=== PATIENT | male | born 1990 | race Two or more races ===

== ENCOUNTER 2019-01-30 09:10 | Emergency (ER) | payer OTHER ==
[2019-01-30 09:17] VITALS: BMI 26.6
[2019-01-30] MEDS ORDERED: ASPIRIN 81 MG CHEWABLE TABLETS PO ONE (09:27)
[2019-01-30] MEDS ORDERED: RANITIDINE HCL 150 MG TABLET (FP) PO ONE (09:32)
[2019-01-30] MEDS ORDERED: ASPIRIN COATED 81 MG TABLET.EC ONE (09:34)
[2019-01-30] MEDS ORDERED: RANITIDINE HCL 150 MG TABLET (FP) ONE (09:34)
--- NOTE | 2019-01-30 09:34 | PDOC ---
*Physical Exam - Vital Signs Last Vital Signs Temp Pulse Resp BP Pulse Ox 97.7 F 77 20 119/72 100 01/30/19 09:13 01/30/19 09:13 01/30/19 09:13 01/30/19 09:13 01/30/19 09:13 ED Treatment Course - LABORATORY CBC & Chemistry Diagram: 01/30/19 09:45 01/30/19 09:45 Medical Decision Making - Medical Decision Making 01/30/19 09:33 Ms Pina is a 28 yo M who presents to the ER with a complaint of midsternal chest pain He awoke with symptoms this morning with midsternal chest pain Pt was in his usual states of health last night Pain is described as pressure, midsternal, 9/10, no radiatio Pain is worse with sitting forward No chest wall trauma No prior episodes like this 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), does heavy lifting but this has never caused chest pain Family history of diabetes Eval for: Pneumothorax, pleural effusion, pericarditis/myocarditis, ACS, PE EKG: NSR rate of 67 bpm, axis nml, intervals nml, no st elevation or depression , RSR' v1, v2, prominent t waves precordial leads No prior EKG for comparison 01/30/19 09:42 Will do: Labs (including d dimer) Asa, Zantac CXR Morphine for pain Re Assess 01/30/19 10:40 Laboratory Tests 01/30/19 01/30/19 09:45 09:45 WBC 17.5 H Hgb 13.8 Hct 40.9 Plt Count 273 Creatine Kinase 447 H Troponin I < 0.02 01/30/19 12:29 Laboratory Tests 01/30/19 09:45 D-Dimer < 215 Laboratory Tests 01/30/19 12:51 Creatine Kinase 440 H Troponin I < 0.02 Pt has improved Will plan to discharge to home clinical Impression: chest pain, initial presentation *DC/Admit/Observation/Transfer Diagnosis at time of Disposition: Costochondral chest pain - Discharge Dispostion Disposition: HOME Condition at time of disposition: Stable - Prescriptions Prescriptions: Naproxen 500 mg PO BID PRN #20 tablet PRN Reason: pain - Referrals Referrals: Braulio Cain MD [Staff Physician] - - Patient Instructions Printed Discharge Instructions: DI for Costochondritis Additional Instructions: Your labs and chest x-ray was normal. Your symptoms likely from muscle pain. Take prescribed medication as needed for pain. Rest. Follow-up referred cardiology if no improvement in 2 days - Post Discharge Activity Forms/Work/School Notes: Back to Work
[2019-01-30 09:57] LABS: BASO % 0.6 % (0-2.0); EOS % 2.4 % (0-4.5); HEMATOCRIT 40.9 % (35.4-49); HEMOGLOBIN 13.8 GM/dL (11.7-16.9); LYMPH % 18.9 % (8-40); MCHC 33.7 g/dl (32.0-35.9); MEAN CELL VOLUME 95.2 fl (80-96); MEAN PLT VOLUME 8.1 fl (7.5-11.1); MONO % 7.9 % (3.8-10.2); NEUT % 70.2 % (42.8-82.8); PLATELET COUNT 273 K/MM3 (134-434); RDW 12.6 % (11.9-15.9); WHITE BLOOD COUNT 17.5 K/mm3 (4.0-10.0)
--- NOTE | 2019-01-30 10:02 | PDOC ---
History of Present Illness - General Chief Complaint: Chest Pain Stated Complaint: CHEST PAIN Time Seen by Provider: 01/30/19 09:21 History Source: Patient Exam Limitations: Clinical Condition - History of Present Illness Initial Comments: 01/30/19 09:57 Patient with no significant past medical history present with complaint of midsternal chest pain upon wake this morning which is worse with movement, deep breathing or pressing on the middle of the chest. Denies palpitation, weakness, nausea, vomiting, headache. Reported mild dizziness from pain. Denies any family history of cardiomyopathy. Report that he does a lot of heavy lifting at work. Patient did not take any medication for symptoms. Denies any other symptoms Timing/Duration: 4-6 hours Past History - Past Medical History Allergies/Adverse Reactions: Allergies Allergy/AdvReac Type Severity Reaction Status Date / Time No Known Allergies Allergy Verified 01/30/19 09:16 Home Medications: Ambulatory Orders Naproxen 500 mg PO BID PRN #20 tablet 01/30/19 COPD: No - Surgical History Cholecystectomy: Yes - Suicide/Smoking/Psychosocial Hx Smoking History: Current every day smoker Number of Cigarettes Smoked Daily: 5 Information on smoking cessation initiated: No Hx Alcohol Use: Yes Drug/Substance Use Hx: No Review of Systems - Review of Systems Able to Perform ROS?: Yes Is the patient limited Dutch proficient: No Constitutional: No: Chills, Diaphoresis, Fever, Malaise, Weakness HEENTM: No: Symptoms Reported, See HPI, Eye Pain, Blurred Vision, Tearing, Recent change in vision, Double Vision, Cataracts, Ear Pain, Ocular Prothesis, Ear Discharge, Nose Pain, Nose Congestion, Tinnitus, Nose Bleeding, Hearing Loss , Throat Pain, Throat Swelling, Mouth Pain, Dental Problems, Difficulty Swallowing, Mouth Swelling, Other Respiratory: No: Symptoms reported, See HPI, Cough, Orthopnea, Shortness of Breath, SOB with Exertion, SOB at Rest, Stridor, Wheezing, Productive cough, Hemoptysis, Other Cardiac (ROS): Yes: Symptoms Reported, See HPI, Chest Pain (mid- sternal chest pain), Lightheadedness. No: Edema, Irregular Heart Rate, Palpitations, Syncope , Chest Tightness, Other ABD/GI: No: Nausea, Vomiting Musculoskeletal: Yes: Symptoms Reported, See HPI, Muscle Pain (mid-sternum) Neurological: No: Symptoms reported, Headache, Numbness, Paresthesia, Tingling, Weakness All Other Systems: Reviewed and Negative *Physical Exam - Vital Signs Last Vital Signs Temp Pulse Resp BP Pulse Ox 97.7 F 77 20 119/72 100 01/30/19 09:13 01/30/19 09:13 01/30/19 09:13 01/30/19 09:13 01/30/19 09:13 - Physical Exam Comments: 01/30/19 10:04 GENERAL: Well developed, well nourished. Awake and alert in mild acute distress. HEENT: Normocephalic, atraumatic. PERRLA, EOMI. No conjunctival pallor. Sclera are non-icteric. Moist mucous membranes. Oropharynx is clear. NECK: Supple. Full ROM. CARDIOVASCULAR: moderate reproduceable TTP to mid-sternum. Regular rate and rhythm. No murmurs, rubs, or gallops. Distal pulses are 2+ and symmetric. PULMONARY: No evidence of respiratory distress. Lungs clear to auscultation bilaterally. No wheezing, rales or rhonchi. ABDOMINAL: Soft. Non-tender. Non-distended. No rebound or guarding. No organomegaly. Normoactive bowel sounds. MUSCULOSKELETAL moderate reproduceable tenderness to mid-sternum.Normal range of motion at all joints. EXTREMITIES: No cyanosis. No clubbing. No edema. SKIN: Warm and dry. Normal capillary refill. No rashes. NEUROLOGICAL: Alert, awake, appropriate. Gait is normal without ataxia. PSYCHIATRIC: Cooperative. Good eye contact. Appropriate mood General Appearance: Yes: Nourished, Appropriately Dressed, Apparent Distress, Mild Distress ED Treatment Course - LABORATORY CBC & Chemistry Diagram: 01/30/19 09:45 01/30/19 09:45 - RADIOLOGY Radiology Studies Ordered: Category Date Time Status CHEST PA & LAT [RAD] Stat Radiology 01/30/19 09:22 Ordered Medical Decision Making - Medical Decision Making 01/30/19 09:59 Patient with no significant past medical history present with complaint of midsternal chest pain upon wake this morning which is worse with movement, deep breathing or pressing on the middle of the chest. Denies palpitation, weakness, nausea, vomiting, headache. Reported mild dizziness from pain. Denies any family history of cardiomyopathy. Report that he does a lot of heavy lifting at work. Patient did not take any medication for symptoms. Denies any other symptoms Exam significant for moderate reproducible tenderness to midsternal. Normal cardio exam. Normal lungs exam. No abdominal tenderness. Symptoms likely costochondritis versus less likely cardiogenic pain. EKG shows normal sinus rhythm. CBC, CMP and cardiac profile labs ordered to rule out cardiogenic etiology of symptoms. D-dimer ordered. Evaluate for PE. Checks x-ray ordered to rule out acute chest pathology. Aspirin 162 mg chewable given 01/30/19 10:30 chest x-ray unremakable. cardiac profile normal. CBC shows elevated WBC of 17 which could be caused by acute inflammatory effect as pt does not have any other symptoms to indicate infection. Patient report mild improved pain with aspirin Toradol 60mg IM ordered for pain. will repeat blood work again in 3 hours 01/30/19 13:47 Repeat cardiac profile within normal limits. Patient is symptomatic now after Toradol medication. Patient symptoms likely costochondritis and stable for discharge on naproxen when necessary for pain with strict follow-up *DC/Admit/Observation/Transfer Diagnosis at time of Disposition: Costochondral chest pain - Discharge Dispostion Disposition: HOME Condition at time of disposition: Stable Decision to Admit order: No - Prescriptions Prescriptions: Naproxen 500 mg PO BID PRN #20 tablet PRN Reason: pain - Referrals Referrals: Braulio Cain MD [Staff Physician] - - Patient Instructions Printed Discharge Instructions: DI for Costochondritis Additional Instructions: Your labs and chest x-ray was normal. Your symptoms likely from muscle pain. Take prescribed medication as needed for pain. Rest. Follow-up referred cardiology if no improvement in 2 days - Post Discharge Activity Forms/Work/School Notes: Back to Work
[2019-01-30] MEDS ORDERED: ASPIRIN 81 MG CHEWABLE TABLETS ONE (10:12)
[2019-01-30] MEDS ORDERED: KETOROLAC TROMETHAMINE 60 MG/2 ML VIAL ONE (10:13)
[2019-01-30 10:25] LABS: ALBUMIN 3.7 g/dl (3.4-5.0); ALK PHOS 76 U/L (45-117); ANION GAP 3 MMOL/L (8-16); BILIRUBIN,TOTAL 0.4 mg/dL (0.2-1); BLOOD UREA NITROGEN 11.8 mg/dL (7-18); CALCIUM 9.3 mg/dL (8.5-10.1); CHLORIDE 108 mmol/L (98-107); CO2 28 mmol/L (21-32); CREATININE 1.1 mg/dL (0.55-1.3); GLUCOSE,RANDOM 68 mg/dL (74-106); POTASSIUM 4.6 mmol/L (3.5-5.1); SGOT/AST 17 U/L (15-37); SGPT/ALT 19 U/L (13-61); SODIUM 139 mmol/L (136-145)
[2019-01-30] MEDS ORDERED: KETOROLAC TROMETHAMINE 60 MG/2 ML VIAL IM ONE (10:30)
--- NOTE | 2019-01-30 13:28 | EKG ---
Test Reason : Blood Pressure : / mmHG Vent. Rate : 067 BPM Atrial Rate : 067 BPM P-R Int : 152 ms QRS Dur : 098 ms QT Int : 372 ms P-R-T Axes : 039 047 047 degrees QTc Int : 393 ms NORMAL SINUS RHYTHM RSR' OR QR PATTERN IN V1 SUGGESTS RIGHT VENTRICULAR CONDUCTION DELAY BORDERLINE ECG NO PREVIOUS ECGS AVAILABLE Confirmed by GÉNESIS FIGUEROA MD ([id number]) on 01/30/2019 1:28:39 PM Referred By: Confirmed By:GÉNESIS FIGUEROA MD
[2019-01-30 14:17] VITALS: BP 131/72; PULSE 54; TEMP 97.9
== END 2019-01-30 14:14 | disposition home or self-care (01) ==
LOC: JER 09:10
PROC: 3E0233Z Introduction of Anti-inflammatory into Muscle, Percutaneous Approach (ICD-10-PCS; principal; 2019-01-30)
DX: M94.0 Chondrocostal junction syndrome [Tietze] (principal)
CPT/HCPCS: 36415; 71046-TC-FY; 80053; 82550; 82553; 84484; 85025; 85379; 93005; 93010; 99284-25

== ENCOUNTER 2019-03-15 17:27 | Emergency (ER) | payer OTHER ==
--- NOTE | 2019-03-15 17:32 | PDOC ---
Rapid Medical Evaluation Medical Evaluation: Allergies Allergy/AdvReac Type Severity Reaction Status Date / Time No Known Allergies Allergy Verified 01/30/19 09:16 I have performed a brief in-person evaluation of this patient. The patient presents with a chief complaint of: drank 10 shots of alcohol last night and NBNB emesis since 4 AM today along with watery diarrhea; also c/o diffuse abd pain Pertinent physical exam findings: appears uncomfortable, generalized abd TTP I have ordered the following: Labs, IVF, nausea meds The patient will proceed to the ED for further evaluation. 03/15/19 17:29
[2019-03-15 17:33] VITALS: BMI 28.8
[2019-03-15] MEDS ORDERED: SODIUM CHLORIDE 1,000 ML IV STA ×2 (17:33→20:47)
[2019-03-15] MEDS ORDERED: FAMOTIDINE 20 MG/50 ML IVPB 20 MG/50 ML MG IVPB ONE ×2 (17:33→19:39)
[2019-03-15] MEDS ORDERED: ONDANSETRON 4 MG/2 ML VIAL IVPUSH ONE ×2 (17:33→20:18)
--- NOTE | 2019-03-15 18:27 | PDOC ---
History of Present Illness - General Chief Complaint: Vomiting/Diarrhea Stated Complaint: VOMITING Time Seen by Provider: 03/15/19 17:29 History Source: Patient Exam Limitations: No Limitations - History of Present Illness Initial Comments: 03/15/19 20:17 Andrew Pina is a 29y previously healthy M presenting with vomiting. Last night he smoked marijuana and drank large amounts of alcohol. Subsequent 12hrs of vomiting, non bloody. Associated diffuse abdominal pain, R sided chest pain, diarrhea. Cannot keep food/water down. Denies fever, SOB, headache, urinary changes. Past History - Past Medical History Allergies/Adverse Reactions: Allergies Allergy/AdvReac Type Severity Reaction Status Date / Time No Known Allergies Allergy Verified 01/30/19 09:16 Home Medications: Ambulatory Orders Naproxen 500 mg PO BID PRN #20 tablet 01/30/19 COPD: No - Surgical History Cholecystectomy: Yes - Immunization History Immunization Up to Date: Yes - Suicide/Smoking/Psychosocial Hx Smoking History: Never smoked Number of Cigarettes Smoked Daily: 5 Information on smoking cessation initiated: No Hx Alcohol Use: No Drug/Substance Use Hx: No Review of Systems - Review of Systems Constitutional: No: Chills, Fever HEENTM: No: Eye Pain, Nose Pain, Throat Pain, Mouth Pain Respiratory: No: Cough, Shortness of Breath Cardiac (ROS): Yes: Chest Pain (R sided). No: Edema, Palpitations, Syncope ABD/GI: Yes: Diarrhea, Nausea, Vomiting. No: Abdominal Distended, Constipated : No: Burning, Dysuria, Discharge, Flank Pain, Hematuria, Incontinence Musculoskeletal: No: Back Pain, Joint Pain, Muscle Pain, Muscle Weakness Integumentary: No: Bruising, Flushing, Lesions Neurological: No: Headache, Numbness, Seizure, Tingling, Tremors Psychiatric: No: Anxiety, Depression, Stressors Endocrine: No: Excessive Sweating, Flushing, Intolerance to Cold, Intolerance to Heat Hematologic/Lymphatic: No: Anemia, Blood Clots, Easy Bleeding *Physical Exam - Vital Signs Last Vital Signs Temp Pulse Resp BP Pulse Ox 98.2 F 58 L 17 135/67 100 03/15/19 17:31 03/15/19 17:31 03/15/19 17:31 03/15/19 17:31 03/15/19 17:31 - Physical Exam General Appearance: Yes: Nourished, Appropriately Dressed, Moderate Distress ( vomiting). No: Alcohol on Breath HEENT: positive: EOMI, MARCELLA, Normal Voice. negative: Scleral Icterus (R), Scleral Icterus (L), Nasal Congestion, Rhinorrhea Respiratory/Chest: positive: Lungs Clear, Normal Breath Sounds. negative: Chest Tender, Respiratory Distress, Crackles, Rales, Rhonchi, Stridor, Wheezing Cardiovascular: positive: Regular Rhythm, Regular Rate, S1, S2. negative: Edema , Murmur Gastrointestinal/Abdominal: positive: Normal Bowel Sounds, Tender (mild pain w palpation all AB quadrants, moderate tenderness RLQ), Flat, Soft. negative: Organomegaly, Distended, Guarding, Rebound, Mass Musculoskeletal: positive: CVA Tenderness (R). negative: CVA Tenderness (L) Extremity: positive: Delayed Capillary Refill Integumentary: positive: Normal Color Neurologic: positive: Fully Oriented, Alert, Normal Response, Respond to painful stimul, Responsive. negative: Sensory Deficit, Confused, Disoriented ED Treatment Course - LABORATORY CBC & Chemistry Diagram: 03/15/19 19:50 03/15/19 19:50 Medical Decision Making - Medical Decision Making 03/15/19 20:04 CBC CMP lipase UA Ucx UTox EKG CXR 2 morphine for pain, 8 zofran for nausea, pepcid, maalox, 1L NS CT AB w contrast WBC 16, 68 lipase low, trop neg CXR shows clear lung conner CT AB normal pending UA, Utox Andrew Pina is a 29y previously healthy M presenting with vomiting. Vomiting likely gastritis d/t heavy alcohol use vs cyclic vomiting (marijuana use). Appendicitis vs kidney stone not seen on CT AB. Unlikely pancreatitis with low lipase. Plan to d/c home after Ua results. *DC/Admit/Observation/Transfer Diagnosis at time of Disposition: Vomiting Qualifiers: Vomiting type: unspecified Vomiting Intractability: intractable Nausea presence : with nausea Qualified Code(s): R11.2 - Nausea with vomiting, unspecified - Discharge Dispostion Disposition: HOME Condition at time of disposition: Improved Decision to Admit order: No - Referrals - Patient Instructions Printed Discharge Instructions: DI for Vomiting -- Adult Additional Instructions: You were seen for vomiting and abdominal pain. You were given medication to help with your symptoms. Your labs and imaging did not show anything concerning. Please do not consume large amounts of alcohol or marijuana. Come back to the ED if you have worsening pain, continue vomiting, or trouble breathing - Post Discharge Activity
[2019-03-15] MEDS ORDERED: MAG HYDROX/AL HYDROX/SIMETH -MYLANTA- ORAL SUSPENSION PO ONE (19:13)
[2019-03-15] MEDS ORDERED: ONDANSETRON 4 MG/2 ML VIAL ONE ×2 (19:39→20:26)
[2019-03-15] MEDS ORDERED: morphine CARPU-JECT 4 MG/1 ML DISP.SYRIN IVPUSH ONE (19:50)
[2019-03-15] MEDS ORDERED: MORPHINE SULFATE 2 MG/ML VIAL ONE (20:10)
[2019-03-15] MEDS ORDERED: MAG HYDROX/AL HYDROX/SIMETH 30 ML UNIT-DOSE CUP ONE (20:10)
[2019-03-15 20:14] LABS: BASO % 0.1 % (0-2.0); HEMATOCRIT 46.6 % (35.4-49); HEMOGLOBIN 15.4 GM/dL (11.7-16.9); MCH 31.5 pg (25.7-33.7); MEAN CELL VOLUME 95.3 fl (80-96); MEAN PLT VOLUME 8.2 fl (7.5-11.1); MONO % 4.9 % (3.8-10.2); PLATELET COUNT 376 K/MM3 (134-434); RBC 4.89 M/mm3 (4.00-5.60); RDW 12.7 % (11.9-15.9); WHITE BLOOD COUNT 16.1 K/mm3 (4.0-10.0)
--- NOTE | 2019-03-15 20:15 | PDOC ---
Attending Attestation - Resident Resident Name: Justus,Juan - ED Attending Attestation I have performed the following: I have examined & evaluated the patient, The case was reviewed & discussed with the resident, I agree w/resident's findings & plan - HPI HPI: 03/15/19 20:40 Pt comes with girlfriend and her mom. The trio were drinking last night around midnight; also they were eating kiswahili food. Pt had his own dish (fried rice with chicken and broccoli) though his girlfriend may have eaten a bit of it. Pt woke at 3am to go to work, and he began nausea and vomitiing and diarrhea. 3 episodes of diarrhea and vomitiing q5 min. - Physicial Exam PE: 03/15/19 22:04 Agree with resident exam. Pt has diffuse right sided tenderness of abdomen. We will CT scan to make sure that pt has no appendicitis Pt seems to have decreased bowel sounds. Heart, ;rosanna exam normal Pt is afebrile. No flank pain. - Medical Decision Making 03/15/19 20:38 CBC is normal; EKG NSR Chem hemolyzed it will be repeated.Pt is doing better with hydration and meds. He is resting comfortably 03/15/19 23:21 Patient Name: JUAN JENSEN THIS IS A PRELIMINARY REPORT FROM [facility] DATE OF SERVICE: 2019-03-15 22:34:46 IMAGES: 506 EXAM: ABDOMEN \T\ PELVIS CT WITH CONTR History: 29-year-old male with right lower quadrant pain Comparison: None Procedure: CT scan abdomen and pelvis, dated March 15, 2019 . Axial images obtained followed by coronal and sagittal reconstructions. Intravenous contrast utilized , 100 cc Omnipaque 350 . Findings: Hepatomegaly, likely related to a Ceci's lobe of liver. Otherwise the liver, spleen, pancreas, adrenal glands and kidneys unremarkable. Status post cholecystectomy. Ureters nondilated. No bladder calculi are evident. Prostate gland and seminal vesicles normal configuration. Rectum and perirectal space unremarkable. Terminal ileum and appendix within normal limits. No large or small bowel inflammatory changes evident. No evidence for small bowel obstruction. Impression: 1. No findings to suggest acute appendicitis. Terminal ileum and appendix within normal limits. 2. No evidence of tract obstruction or inflammatory change. 3. Status post cholecystectomy.
[2019-03-15 20:44] LABS: LIPASE 68 U/L (73-393)
[2019-03-15] MEDS ORDERED: SODIUM CHLORIDE 0.9% 500 ML INFUS.BAG IV ONE (20:44)
[2019-03-15 21:07] LABS: ALBUMIN 4.6 g/dl (3.4-5.0); ALK PHOS 80 U/L (45-117); ANION GAP 10 MMOL/L (8-16); BILIRUBIN,TOTAL 0.5 mg/dL (0.2-1); BLOOD UREA NITROGEN 10.4 mg/dL (7-18); CALCIUM 10.2 mg/dL (8.5-10.1); CHLORIDE 104 mmol/L (98-107); CO2 25 mmol/L (21-32); CREATININE 1.1 mg/dL (0.55-1.3); GLUCOSE,RANDOM 79 mg/dL (74-106); POTASSIUM 3.9 mmol/L (3.5-5.1); SGOT/AST 27 U/L (15-37); SGPT/ALT 31 U/L (13-61); SODIUM 139 mmol/L (136-145); TOT PROT 8.6 g/dl (6.4-8.2)
[2019-03-16 02:20] LABS: URINE COLOR YELLOW
[2019-03-16 02:21] LABS: URINE APPEARANCE CLEAR; URINE BILIRUBIN NEGATIVE (NEGATIVE); URINE GLUCOSE (UA) NEGATIVE (NEGATIVE); URINE KETONE TRACE (NEGATIVE); URINE PROTEIN NEGATIVE (NEGATIVE); URINE UROBILINOGEN 0.2 mg/dL (0.2-1.0)
[2019-03-16 02:22] LABS: URINE LEUK ESTERASE NEGATIVE (NEGATIVE); URINE NITRITE NEGATIVE (NEGATIVE)
[2019-03-16 02:24] LABS: EPI CELLS 2.7 /HPF (0-5/HPF); HYALINE CASTS 13.92 /lpf (0-8); URINE RBC 1.4 /hpf (0-4); URINE WBC 0.6 /hpf (0-5)
[2019-03-16 02:43] VITALS: BP 120/71; PULSE 82; TEMP 98.1
[2019-03-16 03:33] LABS: COCAINE, UR NEGATIVE ng/ml (CUTOFF=300); URINE AMPHETAMINES NEGATIVE ng/ml (CUTOFF=500); URINE BARBITURATES NEGATIVE ng/ml (CUTOFF=200); URINE BENZODIAZEPINES NEGATIVE ng/ml (CUTOFF=200)
[2019-03-16 03:34] LABS: METHADONE, UR NEGATIVE ng/ml (CUTOFF=300); PHENCYCLIDINE,URINE NEGATIVE ng/ml (CUTOFF=25)
[2019-03-16 03:35] LABS: OPIATES, URI POSITIVE ng/ml (CUTOFF=300)
--- NOTE | 2019-03-16 23:47 | EKG ---
Test Reason : Blood Pressure : / mmHG Vent. Rate : 054 BPM Atrial Rate : 054 BPM P-R Int : 142 ms QRS Dur : 106 ms QT Int : 422 ms P-R-T Axes : 041 055 059 degrees QTc Int : 400 ms SINUS BRADYCARDIA WITH SINUS ARRHYTHMIA INCOMPLETE RIGHT BUNDLE BRANCH BLOCK BORDERLINE ECG WHEN COMPARED WITH ECG OF 30-JAN-2019 09:11, NO SIGNIFICANT CHANGE WAS FOUND Confirmed by GÉNESIS FIGUEROA MD ([id number]) on 03/16/2019 11:47:25 PM Referred By: Confirmed By:GÉNESIS FIGUEROA MD
== END 2019-03-16 02:42 | disposition home or self-care (01) ==
LOC: JER 17:27
PROC: 3E0337Z Introduction of Electrolytic and Water Balance Substance into Peripheral Vein, Percutaneous Approach (ICD-10-PCS; principal; 2019-03-15)
PROC: 3E033NZ Introduction of Analgesics, Hypnotics, Sedatives into Peripheral Vein, Percutaneous Approach (ICD-10-PCS; 2019-03-15)
PROC: 3E033GC Introduction of Other Therapeutic Substance into Peripheral Vein, Percutaneous Approach (ICD-10-PCS; 2019-03-15)
PROC: 3E033GC Introduction of Other Therapeutic Substance into Peripheral Vein, Percutaneous Approach (ICD-10-PCS; 2019-03-15)
DX: R11.2 Nausea with vomiting, unspecified (principal); F10.10 Alcohol abuse, uncomplicated; F12.10 Cannabis abuse, uncomplicated
CPT/HCPCS: 36415; 71045-TC-FY; 74177-TC; 80053; 80307; 81003; 83690; 84484; 85025; 87086; 93005; 93010; 99283-25; J7030

== ENCOUNTER 2019-06-20 13:45 | Inpatient (IN) | payer OTHER ==
[2019-06-20 13:52] VITALS: BMI 28.0
[2019-06-20] MEDS ORDERED: ONDANSETRON 4 MG/2 ML VIAL ONE ×2 (14:53→20:24)
[2019-06-20] MEDS ORDERED: ONDANSETRON 4 MG/2 ML VIAL IVPB ONE (14:55)
[2019-06-20] MEDS ORDERED: SODIUM CHLORIDE 1,000 ML IV STA ×2 (14:55→16:54)
[2019-06-20] MEDS ORDERED: ACETAMINOPHEN INJECTION 100 ML IVPB ONE (15:11)
[2019-06-20 15:28] LABS: BASO % 0.6 % (0-2.0); HEMATOCRIT 45.2 % (35.4-49); HEMOGLOBIN 15.2 GM/dL (11.7-16.9); LYMPH % 18.1 % (8-40); MCH 31.8 pg (25.7-33.7); MCHC 33.6 g/dl (32.0-35.9); MEAN CELL VOLUME 94.7 fl (80-96); MEAN PLT VOLUME 8.6 fl (7.5-11.1); MONO % 17.2 % (3.8-10.2); NEUT % 64.1 % (42.8-82.8); PLATELET COUNT 253 K/MM3 (134-434); RBC 4.77 M/mm3 (4.00-5.60); RDW 12.4 % (11.9-15.9); WHITE BLOOD COUNT 10.6 K/mm3 (4.0-10.0)
[2019-06-20] MEDS ORDERED: ACETAMINOPHEN 1000 MG/100 ML VIAL (NON FORMULARY) IVPB ONE (15:28)
[2019-06-20] MEDS ORDERED: METOCLOPRAMIDE HCL INJECTION 10 MG/2 ML VIAL IVPUSH ONE (15:31)
--- NOTE | 2019-06-20 15:35 | PDOC ---
History of Present Illness - General Chief Complaint: Cold Symptoms Stated Complaint: FLU LIKE SYMPTOMS Time Seen by Provider: 06/20/19 14:03 Past History - Past Medical History Allergies/Adverse Reactions: Allergies Allergy/AdvReac Type Severity Reaction Status Date / Time No Known Allergies Allergy Verified 06/20/19 13:52 Home Medications: Ambulatory Orders NK [No Known Home Medication] 06/20/19 COPD: No - Surgical History Cholecystectomy: Yes - Immunization History Immunization Up to Date: Yes - Psycho Social/Smoking Cessation Hx Smoking History: Never smoked Number of Cigarettes Smoked Daily: 5 Hx Alcohol Use: No Drug/Substance Use Hx: Yes (MARIJUANA) *Physical Exam - Vital Signs Last Vital Signs Temp Pulse Resp BP Pulse Ox 98.3 F 68 18 131/83 98 06/20/19 13:48 06/20/19 13:48 06/20/19 13:48 06/20/19 13:48 06/20/19 13:48 ED Treatment Course - LABORATORY CBC & Chemistry Diagram: 06/20/19 15:00 06/20/19 15:00 - ADDITIONAL ORDERS Additional order review: Laboratory Results 06/20/19 15:02 POC Glucometer 103 06/20/19 06/20/19 15:02 15:00 RBC 4.77 MCV 94.7 MCHC 33.6 RDW 12.4 MPV 8.6 Neutrophils % 64.1 D Lymphocytes % 18.1 D Monocytes % 17.2 H D Eosinophils % 0.0 Basophils % 0.6 D POC Glucometer 103 - RADIOLOGY Radiology Studies Ordered: Category Date Time Status ABDOMEN & PELVIS CT WITH CONTR [CT] Stat CT Scan 06/20/19 15:07 Ordered - Medications Given in the ED: ED Medications Discontinued Medications Generic Name Dose Route Start Last Admin Trade Name Freq PRN Reason Stop Dose Admin Ondansetron HCl 8 mg 06/20/19 14:55 06/20/19 15:05 Zofran Injection IVPB 06/20/19 14:56 8 mg ONCE ONE Administration Medical Decision Making - Medical Decision Making 06/20/19 15:35 HPI: 29yo M hx cholecystectomy and MJ use presents from home c/o 3 days N/V, sweats, chills, generalized weakness, and 1 day diffuse abdominal pain. Pt poor historian, repeatedly falls asleep and states too tired to answer questions. States sickness including rhinorrhea and congestion and generalized weakness began Monday gradually, worsening. Endorses nausea and nonbloody bilious vomiting "multiple times" unknown amount since yesterday, diffuse abdominal pain unknown type since today, constant, unknown provoking/palliating factors, no improvement with mucinex, no hx similar sx. Endorses chills, sweats, subjective fever. Denies flu shot, sick contacts, travel. Endorses daily MJ use unknown amount, stopped approx 1wk ago when started to feel ill. Denies alcohol , cigarette smoking, or other drug use. Denies cardiac hx, FHx SCD, hx bradycardia, thyroid pathology, fever, chills, fatigue, headache, dizziness, numbness/tingling, weakness, vision changes, shortness of breath, cough, chest pain, palpitations, leg swelling, abdominal pain, blood in stool, diarrhea, constipation, nausea, vomiting, dysuria, hematuria, confusion. PCP - Charley Yang ROS: Constitutional: Positive for chills, fatigue, subjective fever, sweats. HENT: Positive for rhinorrhea and congestion. Negative for sore throat. Eyes: Negative for visual disturbance. Respiratory: Negative for shortness of breath, cough, and wheezing. Cardiovascular: Negative for chest pain, palpitations, and leg swelling. Gastrointestinal: Positive for abdominal pain, nausea, and vomiting. Negative for blood in stool, constipation, diarrhea. Genitourinary: Negative for dysuria, flank pain, and hematuria. Musculoskeletal: Positive for myalgias. Negative for back pain, and neck pain. Skin: Negative for rash. Neurological: Negative for light-headedness, dizziness, vertigo, syncope, focal weakness, numbness and headaches. Psychiatric/Behavioral: Negative for behavioral problems and confusion. PE: Gen: Alert, NAD, sleepy but arousable to voice or sternal rub, vomiting HEENT: PERRL, EOMI, MMM, NCAT. No conjunctival pallor. Sclera are non-icteric. CV: Bradycardic rate and regular rhythm. No murmurs, rubs, or gallops. PULM: No resp distress. CTAB, no wheezes, rales, or rhonchi. ABD: lower abdominal TTP, soft, ND, no rebound tenderness or guarding, no CVA tenderness. BACK: No TTP of c/t/l-spine. No step-offs or deformities. MSK: No bony deformities. 2+ pulses in all extremities. NEURO: AAOx3. PERRL. No gross CN deficits. Strength and sensation grossly intact throughout. EXTREMITIES: No cyanosis. No clubbing. No edema. No calf tenderness. PSYCH: Tired-appearing. Normal mood and thought pattern. SKIN: Warm and dry. Normal capillary refill. No rashes. No jaundice. MDM: 29yo M hx cholecystectomy and MJ use presents from home with 3 days N/V, sweats , chills, generalized weakness, and 1 day diffuse abdominal pain. Bradycardic to 40s, normotensive, afebrile, lower abdominal TTP, actively vomiting bile. N/V/abdominal pain ddx: flu, gastroenteritis, intox, GI pathology such as appendicitis, pancreatitis, GERD, cholelithiasis/cystitis, metabolic derangement , anemia, infection Lethargy/bradycardia ddx: dehydration, anemia, metabolic derangement, infection , arrhythmia, ACS/IA, thyroid pathology -EKG -Emesis management -Pain management -CBC,CMP,Cardiac profile,Amylase,Lipase,Lactic,UDS,Alcohol,TSH,Influenza -CT abd/pelvis -IVF -performance solutions specialist, pads -Dispo: pending w/u 06/20/19 17:00 EKG reviewed: sinus bradycardia with sinus arrhythmia, 53bpm, normal intervals, RV conduction delay, no TWIs, no ST elevations or depression, no delta waves, QTc 369ms Labs reviewed. Flu B positive,TSH 0.25 -add on free T3 and free T4 -Tamiflu for flu 06/20/19 18:[address] for bradycardia to 30s and would not respond per RN. Pt was responsive on arrival to voice, just said he was tired. Haldol 2.5 IV given for continued vomiting due to hx MJ use. ICU consulted by Dr Bronson. 06/20/19 18:28 ICU with pt. 06/20/19 18:37 CTAP - no acute pathology ICU accepted pt. Per ICU, pt now endorsing 3 days of diarrhea. Microblog sent to hospitalist. 06/20/19 19:35 Free T4 1.0 Discharge - Discharge Information Problems reviewed: Yes Clinical Impression/Diagnosis: Vomiting, Bradycardia Condition: Fair - Admission Yes - Follow up/Referral - Patient Discharge Instructions - Post Discharge Activity
[2019-06-20] MEDS ORDERED: METOCLOPRAMIDE HCL INJECTION 10 MG/2 ML VIAL ONE (15:36)
[2019-06-20] MEDS ORDERED: OSELTAMIVIR PHOSPHATE 75 MG CAPSULE PO ONE (15:43)
[2019-06-20 16:26] LABS: ALBUMIN 4.4 g/dl (3.4-5.0); BILIRUBIN,TOTAL 0.6 mg/dL (0.2-1); BLOOD UREA NITROGEN 8.1 mg/dL (7-18); CALCIUM 9.6 mg/dL (8.5-10.1); CREATININE 1.3 mg/dL (0.55-1.3); MAGNESIUM 2.2 mg/dL (1.8-2.4); PHOSPHOROUS 3.8 mg/dL (2.5-4.9); POTASSIUM 3.5 mmol/L (3.5-5.1); TOT PROT 8.5 g/dl (6.4-8.2)
[2019-06-20] MEDS ORDERED: HALOPERIDOL DECANOATE 500 MG/5ML MDV IM ONE (16:41)
[2019-06-20] MEDS ORDERED: HALOPERIDOL LACTATE 5 MG/ML ONE (16:52)
--- NOTE | 2019-06-20 17:26 | PDOC ---
Attending Attestation - Resident Resident Name: Lisbet Masters - ED Attending Attestation I have performed the following: I have examined & evaluated the patient, The case was reviewed & discussed with the resident, I agree w/resident's findings & plan, Exceptions are as noted - HPI HPI: 06/20/19 17:17 Mr Pina is a 29 yo M who presents to the ER for evaluation He is unwilling to provide a history for me My history is obtained from the resident Pt has been ill since Monday (two days ago) He presented to the ER with a complaint of sore throat Was seen in [facility] and was up triaged to the ER Pt is noted to be vomiting No fevers or chills Pt then had a vasovagal episode Last use of Marijuanna was almost 1 week ago 06/20/19 17:26 - Physicial Exam PE: 06/20/19 17:26 GENERAL: The patient is weak appearing, repeatedly vomiting ENT: Ears normal, nares patent, oropharynx clear without exudates. Dry mucous membranes. NECK: Normal range of motion, supple LUNGS: Breath sounds equal, clear to auscultation bilaterally. No wheezes, and no crackles. HEART:Regular rate and rhythm, normal S1 and S2 without murmur, rub or gallop. ABDOMEN: Soft, non distended, diffusely tender to palpation EXTREMITIES: Normal range of motion, no edema. NEUROLOGICAL: Cranial nerves II through XII grossly intact. Normal speech. No focal neurological deficits. SKIN: Warm, Dry, normal turgor, no rashes or lesions noted. - Critical Care Time Total Critical Care Time: 60 Critical Care Statement: The care of this patient involved high complexity decision making to prevent further life threatening deterioration of the patient 's condition and/or to evaluate & treat vital organ system(s) failure or risk of failure. - Medical Decision Making 06/20/19 17:27 Pt with multiple episodes of vomiting Zofran ordered Reglan ordered Pt continues to vomit Laboratory Tests 06/20/19 06/20/19 06/20/19 15:00 15:00 15:00 WBC 10.6 H Hgb 15.2 Hct 45.2 Plt Count 253 D BUN 8.1 Creatinine 1.3 Creatine Kinase 325 H CK-MB (CK-2) < 1.0 Troponin I < 0.02 Total Amylase 57 Lipase 76 Influenza B (Rapid) 12/26/19 15:00 WBC Hgb Hct Plt Count BUN Creatinine Creatine Kinase CK-MB (CK-2) Troponin I Total Amylase Lipase Influenza B (Rapid) Positive A IVF ordered - [address] pending Consider Haldol for cyclical vomiting?? Pt has had 2 episodes of syncope I have witnessed neither The syncopal episode in CT was witnessed by one of the ICU nurses who said he turned blue Pt remains bradycardiac Clinical impression: Syncopal episodes , initial presentation Influenza, initial presentation Bradycardia, initial presentation
[2019-06-20] MEDS ORDERED: SODIUM CHLORIDE 0.9% 500 ML INFUS.BAG IV ONE (18:01)
[2019-06-20] MEDS ORDERED: ONDANSETRON 4 MG/2 ML VIAL IVPUSH PRN (18:43)
--- NOTE | 2019-06-20 18:59 | CONSULT ---
Consultation: REQUESTING PROVIDER: Dr. Bronson CONSULT REQUEST: We have been asked to medically evaluate this patient for symptomatic bradycardia. HISTORY OF PRESENT ILLNESS: 29 M PMH signficant for cholecystectomy who presents to the Emergency Department for chills, nausea, vomiting, diarrhea, and generalized weakness. Patient has had decreased appetite for the past 2 days, and has had multiple episodes of emesis, he is unable to accurately characterize his emesis. Endorses daily marijuana use, but denies other drugs, and has not used marijuana since symptoms developed. He reports having dark stools in the form of diarrhea yesterday, but denies any blood in the stool. He reports one episode of hematemesis. He denies any sick contacts at home and similar episodes in the past. In the Emergency department he was noted to have Sinus Bradycardia, and 2 syncopal events. Denies personal cardiac history, never had echocardiogram done, and no family medical history of cardiac issues. He tested Flu A positive in the emergency department. He was noted to have several episodes of non bloody but bilious emesis in the emergency department. Patient had rapid response called while getting CT Abdomen due to syncopal event where he became unresponsive. Patient was given 2L NS IV, zofran, haldol, and metoclopramide in the emergency department. REVIEW OF SYSTEMS: CONSTITUTIONAL: Present: chills, generalized weakness, loss of appetite Absent: chills, diaphoresis, malaise, weight change HEENT: Absent: rhinorrhea, nasal congestion, throat pain, throat swelling, difficulty swallowing, mouth swelling, ear pain, eye pain, visual changes CARDIOVASCULAR: Absent: chest pain, syncope, palpitations, irregular heart rate, lightheadedness , peripheral edema RESPIRATORY: Present: dyspnea with exertion, shortness of breath, orthopnea Absent: cough, orthopnea, wheezing, stridor, hemoptysis GASTROINTESTINAL: Present: abdominal pain, nausea, vomiting, diarrhea Absent: abdominal distension , constipation, melena, hematochezia GENITOURINARY: Absent: dysuria, frequency, urgency, hesitancy, hematuria, flank pain, genital pain MUSCULOSKELETAL: Present: myalgia Absent: arthralgia, joint swelling, back pain, neck pain SKIN: Absent: rash, itching, pallor HEMATOLOGIC/IMMUNOLOGIC: Absent: easy bleeding, easy bruising, lymphadenopathy, frequent infections ENDOCRINE: Absent: unexplained weight gain, unexplained weight loss, heat intolerance, cold intolerance NEUROLOGIC: Present: headache, dizziness Absent: focal weakness or paresthesias, unsteady gait, seizure, mental status changes, bladder or bowel incontinence PSYCHIATRIC: Absent: anxiety, depression, suicidal or homicidal ideation, hallucinations. PHYSICAL EXAMINATION Vital Signs - 24 hr 06/20/19 06/20/19 06/20/19 13:48 15:03 16:00 Temperature 98.3 F Pulse Rate 68 Pulse Rate [ 54 L 55 L Apical] Respiratory 18 18 17 Rate Blood Pressure 131/83 Blood Pressure 149/83 140/86 [Right Arm] O2 Sat by Pulse 98 100 93 L Oximetry (%) 06/20/19 06/20/19 17:00 17:05 Temperature Pulse Rate Pulse Rate [ 46 L Apical] Respiratory 16 16 Rate Blood Pressure Blood Pressure 147/89 [Right Arm] O2 Sat by Pulse 100 100 Oximetry (%) GENERAL: Awake, alert, and fully oriented. Was in mild distress, midway through examination patient had rigors. HEAD: Normal with no signs of trauma. EARS, NOSE, THROAT: Ears normal, nares patent, oropharynx clear without exudates. Moist mucous membranes. NECK: Normal range of motion, supple without lymphadenopathy, JVD, or masses. LUNGS: Breath sounds equal, clear to auscultation bilaterally. No wheezes, and no crackles. HEART: Bradycardic, S1 and S2 without murmur, rub or gallop. ABDOMEN: Soft, nontender, not distended, normoactive bowel sounds, no guarding, no rebound, no masses. MUSCULOSKELETAL: Normal range of motion at all joints. No bony deformities or tenderness. No CVA tenderness. UPPER EXTREMITIES: 2+ pulses, warm, well-perfused. No cyanosis. No clubbing. Cap refill <2 seconds. No peripheral edema. LOWER EXTREMITIES: 2+ pulses, warm, well-perfused. No calf tenderness. No peripheral edema. NEUROLOGICAL: Cranial nerves II-XII intact. Normal speech. PSYCHIATRIC: Not cooperative. SKIN: Warm, dry, normal turgor, no rashes or lesions noted. Laboratory Results - last 24 hr 06/20/19 06/20/19 06/20/19 15:00 15:00 15:00 WBC 10.6 H RBC 4.77 Hgb 15.2 Hct 45.2 MCV 94.7 MCH 31.8 MCHC 33.6 RDW 12.4 Plt Count 253 D MPV 8.6 Absolute Neuts (auto) 6.8 Neutrophils % 64.1 D Lymphocytes % 18.1 D Monocytes % 17.2 H D Eosinophils % 0.0 Basophils % 0.6 D Nucleated RBC % 0 Sodium 138 Potassium 3.5 Chloride 102 Carbon Dioxide 28 Anion Gap 8 BUN 8.1 Creatinine 1.3 Est GFR (CKD-EPI)AfAm 86.67 Est GFR (CKD-EPI)NonAf 74.78 POC Glucometer Random Glucose 95 Lactic Acid Calcium 9.6 Phosphorus 3.8 Magnesium 2.2 Total Bilirubin 0.6 AST 28 ALT 25 Alkaline Phosphatase 74 Creatine Kinase 325 H Creatine Kinase Index No Result Required. CK-MB (CK-2) < 1.0 Troponin I < 0.02 Total Protein 8.5 H Albumin 4.4 Total Amylase 57 Lipase 76 TSH 0.25 L Alcohol, Quantitative < 3 Influenza A (Rapid) Influenza B (Rapid) 06/20/19 06/20/19 06/20/19 15:00 15:00 15:02 WBC RBC Hgb Hct MCV MCH MCHC RDW Plt Count MPV Absolute Neuts (auto) Neutrophils % Lymphocytes % Monocytes % Eosinophils % Basophils % Nucleated RBC % Sodium Potassium Chloride Carbon Dioxide Anion Gap BUN Creatinine Est GFR (CKD-EPI)AfAm Est GFR (CKD-EPI)NonAf POC Glucometer 103 Random Glucose Lactic Acid 1.7 Calcium Phosphorus Magnesium Total Bilirubin AST ALT Alkaline Phosphatase Creatine Kinase Creatine Kinase Index CK-MB (CK-2) Troponin I Total Protein Albumin Total Amylase Lipase TSH Alcohol, Quantitative Influenza A (Rapid) Negative Influenza B (Rapid) Positive A Active Medications Generic Name Dose Route Start Last Admin Trade Name Freq PRN Reason Stop Dose Admin Chlorhexidine Gluconate 1 applic 06/20/19 22:00 Hibiclens For Decolonization - TP HS GINGER Heparin Sodium (Porcine) 5,000 unit 06/20/19 19:00 Heparin - SQ TID GINGER Potassium Chloride 40 meq/ 1,020 mls @ 100 mls/hr 06/20/19 19:00 Sodium Chloride IVPB ASDIR GINGER Mupirocin 1 applic 06/20/19 22:00 Bactroban Ointment (For Decolonization) - NS 06/25/19 21:59 BID GINGER Ondansetron HCl 4 mg 06/20/19 18:43 Zofran Injection IVPUSH Q6H PRN NAUSEA ASSESSMENT/PLAN: 29 M PMH signficant for cholecystectomy presents to the ED for cyclical vomiting , found to be flu positive, and was found to have symptomatic bradycardia. Neuro/Psych -Patient was uncooperative during parts of exam, and part of history were incongruent with history given to ED team. -Patient had syncopal event vs being uncooperative and unresponsive. -Neurochecks Q6H -Continue monitoring -Urine toxicology positive for marijuana. Cardiovascular -Patient denies any cardiac history. -Sinus bradycardia in current EKG - 53 bpm, last EKG in January was 54 bpm. On monitor patient was down to 40's. -Potential symptomatic bradycardia resulting in syncopal events while in ED. -Continuous cardiac monitoring with pacer pads on standby -Echo ordered. F/U -F/U Troponin -Cardiology consulted. Discussed with Dr. Christine who advised continued telemetry monitoring and follow up echo. Pulm -Patient tested Influenza A positive -Tamiflu 75 mg PO BID -Droplet precautions -Chest X-Ray shows no infiltrates. GI -Patient has history of visiting ED for vomiting. -Cyclical vomiting syndrome -Endorses dark stools. -CT abdomen/pelvis shows no acute pathology. -F/U Stool occult blood -F/U C.diff, ova and parasites, stool culture. Patient had amoxicillin prescribed 05/22/2019. -Was given haldol, zofran, metoclopramide in the ED -Zofran 4 mg Q4H PRN for nausea -Tylenol 650 Q6H PRN for abdominal pain -NPO for now. Will advance diet in the AM as tolerated Renal -Creatinine today is 1.3, baseline is 1.1 -Will continue to monitor -Normal Saline @ 100 ml/hr + 40 meQ of KCl -Recheck K+ in AM. ID -Influenza A positive -Tamiflu 75 mg PO BID Endocrine -TSH 0.25 -F/U Free T3 MSK -Patient currently complains of generalized myalgias- likely related to flu. Tylenol PRN F: NS @ 100 ml/hr E: Monitor CMP N: NPO, will advance diet as GI symptoms subside DVT: Heparin 5000 unit SQ TID Dispo: Admitted to ICU. We will continue to follow the patient. Thank you for this consultative opportunity. Visit type - Emergency Visit Emergency Visit: Yes ED Registration Date: 06/20/19 Care time: The patient presented to the Emergency Department on the above date and was hospitalized for further evaluation of their emergent condition. - New Patient This patient is new to me today: Yes Date on this admission: 06/20/19 - Critical Care Critical Care patient: Yes Total Critical Care Time (in minutes): 45 Critical Care Statement: The care of this patient involved high complexity decision making to prevent further life threatening deterioration of the patient 's condition and/or to evaluate & treat vital organ system(s) failure or risk of failure. ATTENDING PHYSICIAN STATEMENT I saw and evaluated the patient. I reviewed the resident's note and discussed the case with the resident. I agree with the resident's findings and plan as documented. SUBJECTIVE: OBJECTIVE: ASSESSMENT AND PLAN:
[2019-06-20] MEDS ORDERED: SODIUM CHLORIDE 1,000 ML with POTASSIUM CHLORIDE 40 MEQ IVPB SCH (19:00)
--- NOTE | 2019-06-20 19:23 | PN ---
Teaching Attending Note Name of Resident: Tash Ramos ATTENDING PHYSICIAN STATEMENT I saw and evaluated the patient. I reviewed the resident's note and discussed the case with the resident. I agree with the resident's findings and plan as documented. SUBJECTIVE: Patient is a 29 year old man with a PMH of Cholecystectomy and Marijuana use who presents from home complaining of 3 days of nausea, vomiting, sweats, chills , generalized weakness, and 1 day diffuse abdominal pain. Was repeatedly falling asleep and states too tired to answer questions. States sickness including rhinorrhea and congestion and generalized weakness began Monday gradually, worsening. Has nausea and nonbloody bilious vomiting "multiple times " unknown amount since yesterday, diffuse abdominal pain unknown type since today, constant, unknown provoking/palliating factors, no improvement with mucinex. Denies history of similar illness. Has associated chills, sweats and subjective fever. Denies Flu shot, sick contacts or travel. Smokes marijuana daily. Denies alcohol, cigarette smoking, or other illicit drug use. Denies cardiac illness, bradycardia, thyroid pathology, headache, dizziness, numbness/ tingling, vision changes, shortness of breath, cough, chest pain, palpitations, leg swelling, blood in stool, diarrhea, constipation, dysuria or hematuria. OBJECTIVE: Somnolent but arousable Vital Signs Period Temp Pulse Resp BP Sys/[place] Pulse Ox Last 24 Hr 98.3 F 46-68 16-18 131-149/83-89 93-100 HEENT: No Jaundice, eye redness or discharge, PERRLA, EOMI. Normocephalic, atraumatic. External ears are normal and hearing is grossly intact. No nasal discharge. Neck: Supple, nontender. No palpable adenopathy or thyromegaly. No JVD Chest: Good effort. Clear to auscultation and percussion. Heart: Regular. No S3, rub or murmur Abdomen: Not distended, soft, nontender and no HSM. No rebound or guarding. Normal bowel sounds. Ext: Peripheral pulses intact. No leg edema. Skin: Warm and dry. No petechiae, rash or ecchymosis. Neuro: Somnolent but arousable. Oriented to person. CN 2-12 grossly intact. Sensation grossly intact in all four extremities and DTR are symmetric. Psych: Appropriate mood and affect. Good insight. Current Medications Generic Name Dose Route Start Last Admin Trade Name Freq PRN Reason Stop Dose Admin Chlorhexidine Gluconate 1 applic 06/20/19 22:00 Hibiclens For Decolonization - TP HS GINGER Heparin Sodium (Porcine) 5,000 unit 06/20/19 19:00 Heparin - SQ TID GINGER Potassium Chloride 40 meq/ 1,020 mls @ 100 mls/hr 06/20/19 19:01 Sodium Chloride IVPB Q10H GINGER Mupirocin 1 applic 06/20/19 22:00 Bactroban Ointment (For Decolonization) - NS 06/25/19 21:59 BID GINGER Ondansetron HCl 4 mg 06/20/19 18:43 Zofran Injection IVPUSH Q6H PRN NAUSEA Home Medications Medication Instructions Recorded NK [No Known Home Medication] 06/20/19 Abnormal Lab Results 06/20/19 06/20/19 06/20/19 15:00 15:00 15:00 WBC 10.6 H Monocytes % 17.2 H D Creatine Kinase 325 H Total Protein 8.5 H TSH 0.25 L Influenza B (Rapid) 06/20/19 15:00 WBC Monocytes % Creatine Kinase Total Protein TSH Influenza B (Rapid) Positive A ASSESSMENT AND PLAN: 1. Infuenza B infection - CT scan of abdomen/pelvis with IV contrast does not show any acute pathology. Got IV tylenol, zofran, reglan, benadryl, haldol, tamiflu and IV NS. Will continue IV NS, tamiflu and place patient on isolation in the ICU. Low TSH being investigated with free T3 and T4. EKG shows sinus bradycardia - will continue monitoring in the ICU. No acute abnormality on CXR. Urine toxicology shows marijuana. Consult ID. Will continue comprehensive care for all of patients comorbid conditions. 2. DVT prophylaxis - Lovenox 40 mg SQ q 24 hours. 3. Advance directives - Full code
[2019-06-20] MEDS ORDERED: ACETAMINOPHEN 325 MG TABLET (FP) PO PRN (19:46)
[2019-06-20] MEDS ORDERED: HEPARIN NA (PORCINE) 5,000 UNITS/ML 1ML VIAL ONE (20:23)
[2019-06-20 20:33] LABS: COCAINE, UR NEGATIVE ng/ml (CUTOFF=300); METHADONE, UR NEGATIVE ng/ml (CUTOFF=300); OPIATES, URI NEGATIVE ng/ml (CUTOFF=300); PHENCYCLIDINE,URINE NEGATIVE ng/ml (CUTOFF=25); URINE AMPHETAMINES NEGATIVE ng/ml (CUTOFF=500); URINE BARBITURATES NEGATIVE ng/ml (CUTOFF=200); URINE BENZODIAZEPINES NEGATIVE ng/ml (CUTOFF=200)
[2019-06-20] MEDS: HEPARIN NA (PORCINE) 5,000 UNITS/ML 1ML VIAL SQ SCH ×2 (20:51→23:25)
[2019-06-20] MEDS ORDERED: OSELTAMIVIR PHOSPHATE 75 MG CAPSULE PO SCH (22:00)
[2019-06-20] MEDS ORDERED: MELATONIN 5 MG TABLETS PO ONE (22:45)
[2019-06-20] MEDS: CHLORHEXIDINE GLUCONATE 4% CLEANSER FOR DECOLONIZATION TP SCH (23:30)
[2019-06-20] MEDS: OSELTAMIVIR PHOSPHATE 75 MG CAPSULE PO SCH (23:30)
[2019-06-20] MEDS: MUPIROCIN 2% TOPICAL OINTMENT FOR DECOLONIZATION NS SCH (23:31)
[2019-06-20] MEDS: POTASSIUM CHLORIDE 40 MEQ in SODIUM CHLORIDE 1,000 ML IVPB SCH (23:31)
[2019-06-21] MEDS: ONDANSETRON 4 MG/2 ML VIAL IVPUSH PRN ×4 (00:16→22:08)
[2019-06-21] MEDS: METOCLOPRAMIDE HCL INJECTION 10 MG/2 ML VIAL IVPUSH PRN ×2 (01:09→05:27)
--- NOTE | 2019-06-21 03:08 | HP ---
CHIEF COMPLAINT: nausea and vomiting since monday PCP: Dr Yang HISTORY OF PRESENT ILLNESS: 29 M PMH signficant for cholecystectomy who presents to the Emergency Department for chills, nausea, vomiting, diarrhea, and generalized weakness since monday. Patient has had decreased appetite for the past 2 days, and has had multiple episodes of NB but bilious emesis associated with diffuse non specific abdominal pain. Pt denies any precipitating factors; he only admits to drinking vodka on monday. Endorses daily marijuana use, but denies other drugs , and has not used marijuana since symptoms developed. He reports having dark stools in the form of diarrhea yesterday, but denies any blood in the stool. He reports one episode of hematemesis earlier today. He denies any sick contacts at home and similar episodes in the past. In the Emergency department he was noted to have Sinus Bradycardia, and 2 ?syncopal events. Denies personal cardiac history, prior echocardiogram or other cardiac workup, and no family medical history of cardiac disease. Patient had rapid response called while getting CT Abdomen due to syncopal event where he became unresponsive. He denies workout, fever, chills, SOB, chest pain, or urinary changes. Patient was given 2L NS IV, zofran, haldol, and metoclopramide in the emergency department. ER course was notable for: (1) VS notable for bradycardia with lowest recorded at 30s. CBC with leukocytosis at 10.6, CMP with mild Ck elevation at 325 ( not new), trop neg (2) TSH 0.25, FT4 1, FT3 pending. Influenza B positive. Utox positive for THC. (3) CT abdomen negative. -Was given haldol, zofran, metoclopramide in the ED Recent Travel: none PAST MEDICAL HISTORY: as above PAST SURGICAL HISTORY: Lap pj 2 years ago Social History: Smoking:denies Alcohol: social drinker Drugs: marijuana use Allergies No Known Allergies Allergy (Verified 06/20/19 13:52) HOME MEDICATIONS: Home Medications Medication Instructions Recorded NK [No Known Home Medication] 06/20/19 REVIEW OF SYSTEMS CONSTITUTIONAL: generalized weakness, malaise, loss of appetite Absent: fever, chills, diaphoresis, weight change HEENT: Absent: rhinorrhea, nasal congestion, throat pain, throat swelling, difficulty swallowing, mouth swelling, ear pain, eye pain, visual changes CARDIOVASCULAR: Absent: chest pain, syncope, palpitations, irregular heart rate, lightheadedness , peripheral edema RESPIRATORY: Absent: cough, shortness of breath, dyspnea with exertion, orthopnea, wheezing, stridor, hemoptysis GASTROINTESTINAL: abdominal pain,nausea, vomiting, diarrhea Absent: abdominal distension, constipation, melena, hematochezia GENITOURINARY: Absent: dysuria, frequency, urgency, hesitancy, hematuria, flank pain, genital pain MUSCULOSKELETAL: Absent: myalgia, arthralgia, joint swelling, back pain, neck pain SKIN: Absent: rash, itching, pallor HEMATOLOGIC/IMMUNOLOGIC: Absent: easy bleeding, easy bruising, lymphadenopathy, frequent infections ENDOCRINE: Absent: unexplained weight gain, unexplained weight loss, heat intolerance, cold intolerance NEUROLOGIC: Absent: headache, focal weakness or paresthesias, dizziness, unsteady gait, seizure, mental status changes, bladder or bowel incontinence PSYCHIATRIC: Absent: anxiety, depression, suicidal or homicidal ideation, hallucinations. PHYSICAL EXAMINATION Vital Signs - 24 hr 06/20/19 06/20/19 06/20/19 13:48 15:03 16:00 Temperature 98.3 F Pulse Rate 68 Pulse Rate [ 54 L 55 L Apical] Pulse Rate [ Left Radial] Respiratory 18 18 17 Rate Blood Pressure 131/83 Blood Pressure 149/83 140/86 [Right Arm] O2 Sat by Pulse 98 100 93 L Oximetry (%) 06/20/19 06/20/19 06/20/19 17:00 17:05 19:20 Temperature Pulse Rate Pulse Rate [ 46 L Apical] Pulse Rate [ 45 L Left Radial] Respiratory 16 16 20 Rate Blood Pressure Blood Pressure 147/89 145/85 [Right Arm] O2 Sat by Pulse 100 100 100 Oximetry (%) 06/20/19 22:07 Temperature 99.1 F Pulse Rate 45 L Pulse Rate [ Apical] Pulse Rate [ Left Radial] Respiratory 20 Rate Blood Pressure 141/78 Blood Pressure [Right Arm] O2 Sat by Pulse 100 Oximetry (%) GENERAL: Awake, alert, and fully oriented, in mild distress. HEAD: Normal with no signs of trauma. EYES: Pupils equal, round and reactive to light, extraocular movements intact, sclera anicteric, conjunctiva clear. No lid lag. EARS, NOSE, THROAT: oropharynx clear without exudates. Moist mucous membranes. NECK: Normal range of motion, supple without lymphadenopathy, JVD, or masses. LUNGS: Breath sounds equal, clear to auscultation bilaterally. No wheezes, and no crackles. No accessory muscle use. HEART: bradycardia Regular rate and rhythm, normal S1 and S2 without murmur, rub or gallop. ABDOMEN: Soft, diffuse but more prominent in mid and RLQ tenderness, not distended, normoactive bowel sounds, no guarding, no rebound, no masses. No hepatomegaly or splenomegaly. MUSCULOSKELETAL: Normal range of motion at all joints. No bony deformities or tenderness. No CVA tenderness. UPPER EXTREMITIES: 2+ pulses, warm, well-perfused. No cyanosis. No clubbing. No peripheral edema. LOWER EXTREMITIES: 2+ pulses, warm, well-perfused. No calf tenderness. No peripheral edema. PSYCHIATRIC: Cooperative. Good eye contact. Appropriate mood and affect. SKIN: Warm, dry, normal turgor, no rashes or lesions noted, normal capillary refill. Laboratory Results - last 24 hr 06/20/19 06/20/19 06/20/19 15:00 15:00 15:00 WBC 10.6 H RBC 4.77 Hgb 15.2 Hct 45.2 MCV 94.7 MCH 31.8 MCHC 33.6 RDW 12.4 Plt Count 253 D MPV 8.6 Absolute Neuts (auto) 6.8 Neutrophils % 64.1 D Lymphocytes % 18.1 D Monocytes % 17.2 H D Eosinophils % 0.0 Basophils % 0.6 D Nucleated RBC % 0 Sodium 138 Potassium 3.5 Chloride 102 Carbon Dioxide 28 Anion Gap 8 BUN 8.1 Creatinine 1.3 Est GFR (CKD-EPI)AfAm 86.67 Est GFR (CKD-EPI)NonAf 74.78 POC Glucometer Random Glucose 95 Lactic Acid Calcium 9.6 Phosphorus 3.8 Magnesium 2.2 Total Bilirubin 0.6 AST 28 ALT 25 Alkaline Phosphatase 74 Creatine Kinase 325 H Creatine Kinase Index No Result Required. CK-MB (CK-2) < 1.0 Troponin I < 0.02 Total Protein 8.5 H Albumin 4.4 Total Amylase 57 Lipase 76 TSH 0.25 L Free T4 1.00 Opiates Screen Methadone Screen Barbiturate Screen Phencyclidine Screen Ur Amphetamines Screen MDMA (Ecstasy) Screen Benzodiazepines Screen Cocaine Screen U Marijuana (THC) Screen Alcohol, Quantitative < 3 Influenza A (Rapid) Influenza B (Rapid) 06/20/19 06/20/19 06/20/19 15:00 15:00 15:02 WBC RBC Hgb Hct MCV MCH MCHC RDW Plt Count MPV Absolute Neuts (auto) Neutrophils % Lymphocytes % Monocytes % Eosinophils % Basophils % Nucleated RBC % Sodium Potassium Chloride Carbon Dioxide Anion Gap BUN Creatinine Est GFR (CKD-EPI)AfAm Est GFR (CKD-EPI)NonAf POC Glucometer 103 Random Glucose Lactic Acid 1.7 Calcium Phosphorus Magnesium Total Bilirubin AST ALT Alkaline Phosphatase Creatine Kinase Creatine Kinase Index CK-MB (CK-2) Troponin I Total Protein Albumin Total Amylase Lipase TSH Free T4 Opiates Screen Methadone Screen Barbiturate Screen Phencyclidine Screen Ur Amphetamines Screen MDMA (Ecstasy) Screen Benzodiazepines Screen Cocaine Screen U Marijuana (THC) Screen Alcohol, Quantitative Influenza A (Rapid) Negative Influenza B (Rapid) Positive A 06/20/19 19:45 WBC RBC Hgb Hct MCV MCH MCHC RDW Plt Count MPV Absolute Neuts (auto) Neutrophils % Lymphocytes % Monocytes % Eosinophils % Basophils % Nucleated RBC % Sodium Potassium Chloride Carbon Dioxide Anion Gap BUN Creatinine Est GFR (CKD-EPI)AfAm Est GFR (CKD-EPI)NonAf POC Glucometer Random Glucose Lactic Acid Calcium Phosphorus Magnesium Total Bilirubin AST ALT Alkaline Phosphatase Creatine Kinase Creatine Kinase Index CK-MB (CK-2) Troponin I Total Protein Albumin Total Amylase Lipase TSH Free T4 Opiates Screen Negative Methadone Screen Negative Barbiturate Screen Negative Phencyclidine Screen Negative Ur Amphetamines Screen Negative MDMA (Ecstasy) Screen Negative Benzodiazepines Screen Negative Cocaine Screen Negative U Marijuana (THC) Screen Positive A* Alcohol, Quantitative Influenza A (Rapid) Influenza B (Rapid) ASSESSMENT/PLAN: 29 M PMH signficant for cholecystectomy who presents to the Emergency Department for chills, nausea, vomiting, diarrhea, and generalized weakness admitted for intractable vomiting and symptomatic bradycardia Symptomatic bradycardia of unclear etiology vs Thyroid ? Patient denies any cardiac history. Sinus bradycardia in current EKG - 53 bpm, last EKG in January was 54 bpm. On monitor patient was down to 40's. multiple ?syncopal episodes while in bradycardia in 30s-40s admitted to ICU for continuous cardiac monitoring with pacer pads on standby Echo ordered trop neg CXR negative for acute pathology Cardiology consulted. Discussed with Dr. Christine who advised continued telemetry monitoring and follow up echo. TSH 0.25, FT4 normal at 1, FT3 pending intractable vomiting poss THC use vs GI pathology vs viral illness? history of visiting ED for vomiting. Endorses dark stools. CT abdomen/pelvis shows no acute pathology. F/U Stool occult blood antibiotics on last admission F/U C.diff, ova and parasites, stool culture. Zofran 4 mg Q4H PRN for nausea Tylenol 650 Q6H PRN for abdominal pain NPO for now. Will advance diet in the AM as tolerated NS @ 100 ml/hr + influenza B Patient tested Influenza A positive Tamiflu 75 mg PO BID Droplet precautions Chest X-Ray shows no infiltrates. Elevated Cr compared to last poss due to constant vomiting and diarrhea leading to dehydration Cr today is 1.3, baseline is 1.1 Will continue to monitor Normal Saline @ 100 ml/hr Generalized weakness PT ordered FEN NS @ 100 ml/hr Monitor CMP NPO, will advance diet as GI symptoms subside DVT Heparin SQ Admitted to ICU Visit type - Emergency Visit Emergency Visit: Yes ED Registration Date: 06/20/19 Care time: The patient presented to the Emergency Department on the above date and was hospitalized for further evaluation of their emergent condition. - New Patient This patient is new to me today: Yes Date on this admission: 06/21/19 - Critical Care Critical Care patient: Yes Total Critical Care Time (in minutes): 35 Critical Care Statement: The care of this patient involved high complexity decision making to prevent further life threatening deterioration of the patient 's condition and/or to evaluate & treat vital organ system(s) failure or risk of failure. ATTENDING PHYSICIAN STATEMENT I saw and evaluated the patient. I reviewed the resident's note and discussed the case with the resident. I agree with the resident's findings and plan as documented. SUBJECTIVE: OBJECTIVE: ASSESSMENT AND PLAN:
[2019-06-21] MEDS: HEPARIN NA (PORCINE) 5,000 UNITS/ML 1ML VIAL SQ SCH ×3 (05:27→21:43)
[2019-06-21 06:31] LABS: BASO % 0.2 % (0-2.0); HEMATOCRIT 40.9 % (35.4-49); HEMOGLOBIN 13.9 GM/dL (11.7-16.9); LYMPH % 14.9 % (8-40); MCH 31.6 pg (25.7-33.7); MEAN CELL VOLUME 92.8 fl (80-96); MEAN PLT VOLUME 8.7 fl (7.5-11.1); MONO % 10.9 % (3.8-10.2); PLATELET COUNT 235 K/MM3 (134-434); RBC 4.41 M/mm3 (4.00-5.60); RDW 12.6 % (11.9-15.9); WHITE BLOOD COUNT 9.4 K/mm3 (4.0-10.0)
[2019-06-21 06:57] LABS: ALBUMIN 3.7 g/dl (3.4-5.0); BILIRUBIN,TOTAL 0.5 mg/dL (0.2-1); BLOOD UREA NITROGEN 6.9 mg/dL (7-18); CALCIUM 8.6 mg/dL (8.5-10.1); CREATININE 0.8 mg/dL (0.55-1.3); MAGNESIUM 1.8 mg/dL (1.8-2.4); PHOSPHOROUS 3.7 mg/dL (2.5-4.9); POTASSIUM 3.8 mmol/L (3.5-5.1); TOT PROT 7.3 g/dl (6.4-8.2)
[2019-06-21] MEDS ORDERED: FAMOTIDINE 20 MG/50 ML IVPB 20 MG/50 ML MG IVPB ONE ×2 (08:11→22:23)
--- NOTE | 2019-06-21 08:27 | CON.CARD ---
Consult Consult Specialty:: Cardiology Referred by:: Dr. Ayon Reason for Consultation:: BRadycardia - History of Present Illness Chief Complaint: Aches, fever, chills, nausea, vomiting, diarrhea History of Present Illness: 29M s/p cholecystectomy some years ago admitted with aches, nausea, vomiting and diarrhea. Found to be Influenza B +. While in CT, became "unresponsive" for a short period (by report) with report of bradycardia. Had 2 additional episodes in ICU, not correlating w/ sig bradycardia Review of tele shows sinus, mild sinus mali o/w negative. He denies CP, dizziness. He does report chronic exertional dyspnea. No prior rhythm issues. Currently in ICU receiving IVF. 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: Alzheimer's, CVA, Dementia, Migraine, Multiple Sclerosis, Peripheral Neuropathy, Parkinson's, Seizure, Syncope, TIA, Vertigo, Other Cardio/Vascular: No: AFIB, Aneurysm, Aortic Insufficiency, Aortic Stenosis, CAD , CHF, Deep Vein Thrombosis, HTN, Hyperlipdemia, [place], Mitral Insufficiency, Mitral Stenosis, Murmur, Pulmonary Hypertension, Other Gastrointestinal: No: Ascites, Cancer, Constipation, Crohn's Disease, Diverticulitis, Diverticulosis, Esophageal Varices, Gastritis, GERD, GI Bleed, Hemorrhoids, Hiatal Hernia, Inflamatory Bowel Disease, Irritable Bowel Disease, Pancreatitis, Peptic Ulcer Disease, Ulcerative Colitis, Other Hepatobiliary: No: Cirrhosis, Cholelithiasis, Cholecystitis, Choledocholithiasis , Hepatitis A, Hepatitis B, Hepatitis C, Other Renal/: No: Renal Failure, Renal Inusuff, BPH, Cancer, Hematuria, Hemodialysis , Neurogenic Bladder, Renal Calculi, UTI, Other Heme/Onc: No: Anemia, B12 Deficiency, Bleeding Disorder, Cancer, Current Chemotherapy, Current Radiation Therapy, Hemochromatosis, Hypercoaguable State, Myeloproliferative Synd, Sickle Cell Disease, Sickle Cell Trait, Thrombocytopenia, Other Infectious Disease: No: AIDS, C-Diff, Herpes Zoster, HIV, MRSA, STD's, Tuberculosis, VREF, Other Psych: No: Addictions, Anxiety, Bipolar, Depression, Panic, Psychosis, Schizophrenia, Other Musculoskeletal: No: Bursitis, Chronic low back pain, Hemiparesis, Hemiplegia, Osteoarthritis, Paraplegia, Other Rheumatology: No: Fibromyalgia, Gout, Lupus, Rheumatoid Arthritis, Sarcoidosis, Vasculitis, Other ENT: No: Allergic Rhinitis, Sinusitis, Other - Past Surgical History Past Surgical History: Yes: Cholecystectomy - Alcohol/Substance Use Hx Alcohol Use: No History of Substance Use: reports: Marijuana - Smoking History Smoking history: Never smoked Have you smoked in the past 12 months: No Aproximately how many cigarettes per day: 5 - Social History Usual Living Arrangement: Other (with girlfriend) Occupation: Works in retail store History of Recent Travel: No Home Medications - Allergies Allergies/Adverse Reactions: Allergies Allergy/AdvReac Type Severity Reaction Status Date / Time No Known Allergies Allergy Verified 06/20/19 13:52 - Home Medications Home Medications: Ambulatory Orders NK [No Known Home Medication] 06/20/19 Family Medical History Family History: Unremarkable Review of Systems - Review of Systems Constitutional: reports: Chills, Fever, Malaise Eyes: reports: No Symptoms HENT: reports: No Symptoms Neck: reports: No Symptoms Cardiovascular: reports: No Symptoms Respiratory: reports: Exercise Intolerance Gastrointestinal: reports: Abdominal Pain, Diarrhea, Nausea, Vomiting Genitourinary: denies: No Symptoms, Burning, Discharge, Dysuria, Flank Pain, Frequency, Hematuria, Incontinence, Lesions, Menses, Pain, Testicular Mass, Testicular Pain, Testicular Swelling, Urgency, Vaginal Bleeding, Other Breasts: denies: No Symptoms Reported, See HPI, Breast Implants, Discharge from Nipple, Lumps, Pain, Skin Changes, Other Musculoskeletal: denies: No Symptoms, Back Pain, Crepitus, Decreased ROM, Extremity Pain, Joint Pain, Joint Swelling, Muscle Pain, Muscle Cramps, Muscle Weakness, Other Integumentary: denies: No Symptoms, Blister, Bruising, Change in Color, Eczema, Erythema, Incision, Lesions, Lump, Pallor, Pruritis, Rash, Wound, Other Neurological: denies: No Symptoms, Change in LOC, Change in Speech, Confusion, Dizziness, Headache, Incoordination, Numbness, Parasthesia, Pre-Existing Deficit , Seizure, Syncope, Tremors, Unsteady Gait, Weakness, Other Endocrine: denies: No Symptoms, Excessive Sweating, Flushing, Increased Hunger, Increased Thirst, Intolerance to Cold, Intolerance to Heat, Unexplained Weight Gain, Unexplained Weight Loss, Other Hematology/Lymphatic: denies: No Symptoms, Easily Bruised, Excessive Bleeding, Swollen Glands, Other - Risk Factors Known Risk Factors: No: Age, Diabetes Mellitus, Family History, Gender, Hypercholesterolemia, Hypertension, Physical Inactivity, Prior [place] /Emb Stroke, Race, Smoking, Other Vital Signs: Vital Signs Temperature 100.0 F H 06/21/19 07:55 Pulse Rate 48 L 06/21/19 07:55 Respiratory Rate 06/21/19 07:55 Blood Pressure 152/76 06/21/19 07:55 O2 Sat by Pulse Oximetry (%) 100 06/21/19 08:02 Constitutional: Yes: Calm Eyes: Yes: Conjunctiva Clear HENT: Yes: Atraumatic, Normocephalic Respiratory: Yes: CTA Bilaterally Gastrointestinal: Yes: Soft (no rebound or guarding) Renal/: Yes: WNL Cardiovascular: Yes: Regular Rate and Rhythm JVD: No Carotid Bruit: No Heart Sounds: Yes: S1, S2 (rrr, no m/r/g) Edema: No Peripheral Pulses WNL: Yes Neurological: Yes: Alert, Oriented ...Motor Strength: WNL Psychiatric: Yes: WNL - Other Data Labs, Other Data: CBC, BMP 06/21/19 05:40 06/21/19 05:40 Troponin, BNP 06/20/19 15:00 Troponin I < 0.02 Troponin, BNP 06/20/19 15:00 Troponin I < 0.02 Laboratory Tests 06/20/19 06/20/19 06/20/19 15:00 15:00 15:00 WBC Hgb Plt Count Sodium Potassium BUN Creatinine Calcium Phosphorus Magnesium Total Bilirubin AST ALT Alkaline Phosphatase Creatine Kinase 325 H Troponin I < 0.02 TSH 0.25 L Free T4 1.00 Opiates Screen Methadone Screen Barbiturate Screen Phencyclidine Screen Ur Amphetamines Screen MDMA (Ecstasy) Screen Benzodiazepines Screen Cocaine Screen Influenza A (Rapid) Negative Influenza B (Rapid) Positive A 06/20/19 06/21/19 06/21/19 19:45 05:40 05:40 WBC 9.4 Hgb 13.9 Plt Count 235 Sodium 138 Potassium 3.8 BUN 6.9 L Creatinine 0.8 Calcium 8.6 Phosphorus 3.7 Magnesium 1.8 Total Bilirubin 0.5 AST 27 ALT 22 Alkaline Phosphatase 61 Creatine Kinase Troponin I TSH Free T4 Opiates Screen Negative Methadone Screen Negative Barbiturate Screen Negative Phencyclidine Screen Negative Ur Amphetamines Screen Negative MDMA (Ecstasy) Screen Negative Benzodiazepines Screen Negative Cocaine Screen Negative Influenza A (Rapid) Influenza B (Rapid) Sinus mali 53bpm, inc RBBB Echo: Pending Imaging - Results X-ray: Report Reviewed EKG: Image Reviewed Assessment/Plan IMP: Viral syndrome, Influenza B + Sinus bradycardia Reports of altered mental status- now at baseline REC: At this point in time, his mild resting bradycardia does not seem to be the cause of reported episodes of altered mental status. Suspect those episodes were more likely due to acute viral syndrome with fever/ relative dehydration. Would continue telemetry for additional 24 hours Echo for EF assessment. Further evaluation/treatment of acute viral illness as per PMD/ICU team. Will follow, please call if any clinical changes.
[2019-06-21] MEDS ORDERED: PT OWN MED DRAWER 7, Y5N ONE ×3 (09:27→21:39)
[2019-06-21] MEDS: SODIUM CHLORIDE 1,000 ML IV SCH (10:50)
[2019-06-21] MEDS: OSELTAMIVIR PHOSPHATE 75 MG CAPSULE PO SCH ×2 (10:50→21:44)
[2019-06-21] MEDS: MUPIROCIN 2% TOPICAL OINTMENT FOR DECOLONIZATION NS SCH ×2 (10:50→21:43)
--- NOTE | 2019-06-21 12:00 | PN ---
Teaching Attending Note Name of Resident: Elham Melendez ATTENDING PHYSICIAN STATEMENT I saw and evaluated the patient. I reviewed the resident's note and discussed the case with the resident. I agree with the resident's findings and plan as documented. SUBJECTIVE: Patient seen and examined in the ICU. Awake and alert. Still with some mild non-specific abdominal discomfort. No CP or SOB. Heart rate improved and stable. Intake & Output 06/18/19 06/19/19 06/20/19 06/21/19 23:59 23:59 23:59 23:59 Intake Total 700 Output Total 600 Balance 100 Weight 190 lb 190 lb 3.2 oz Last Vital Signs Temp Pulse Resp BP Pulse Ox 99.0 F 59 L 16 127/72 100 06/21/19 11:00 06/21/19 12:00 06/21/19 12:00 06/21/19 12:00 06/21/19 08:02 Active Medications Acetaminophen (Tylenol -) 650 mg PO Q6H PRN PRN Reason: PAIN LEVEL 7 - 10 Chlorhexidine Gluconate (Hibiclens For Decolonization -) 1 applic TP HS GINGER Last Admin: 06/20/19 23:30 Dose: 1 applic Heparin Sodium (Porcine) (Heparin -) 5,000 unit SQ TID GINGER Last Admin: 06/21/19 05:27 Dose: 5,000 unit Sodium Chloride (Normal Saline -) 1,000 mls @ 75 mls/hr IV ASDIR GINGER Last Admin: 06/21/19 10:50 Dose: 75 mls/hr Metoclopramide HCl (Reglan Injection -) 10 mg IVPUSH Q4H PRN PRN Reason: NAUSEA AND/OR VOMITING Last Admin: 06/21/19 05:27 Dose: 10 mg Mupirocin (Bactroban Ointment (For Decolonization) -) 1 applic NS BID GINGER Stop: 06/25/19 21:59 Last Admin: 06/21/19 10:50 Dose: 1 applic Ondansetron HCl (Zofran Injection) 4 mg IVPUSH Q4H PRN PRN Reason: NAUSEA Last Admin: 06/21/19 04:52 Dose: 4 mg Oseltamivir Phosphate (Tamiflu -) 75 mg PO BID GINGER Stop: 06/25/19 21:59 Last Admin: 06/21/19 10:50 Dose: 75 mg GENERAL: Awake, alert, and fully oriented, NAD HEAD: Normal with no signs of trauma. EYES: Sclera anicteric, conjunctiva clear. No lid lag. EARS, NOSE, THROAT: oropharynx clear without exudates. Moist mucous membranes. NECK: Normal range of motion, supple without lymphadenopathy, JVD, or masses. LUNGS: Breath sounds equal, clear to auscultation bilaterally. No wheezes, and no crackles. No accessory muscle use. HEART: S1 S2 ABDOMEN: Soft, mild tenderness to palpation. MUSCULOSKELETAL: Normal range of motion at all joints. No bony deformities or tenderness. No CVA tenderness. UPPER EXTREMITIES: 2+ pulses, warm, well-perfused. No cyanosis. No clubbing. No peripheral edema. LOWER EXTREMITIES: 2+ pulses, warm, well-perfused. No calf tenderness. No peripheral edema. PSYCHIATRIC: Cooperative. Good eye contact. Appropriate mood and affect. SKIN: Warm, dry, normal turgor, no rashes or lesions noted, normal capillary refill. Laboratory Results - last 24 hr 06/20/19 06/20/19 06/20/19 15:00 15:00 15:00 WBC 10.6 H RBC 4.77 Hgb 15.2 Hct 45.2 MCV 94.7 MCH 31.8 MCHC 33.6 RDW 12.4 Plt Count 253 D MPV 8.6 Absolute Neuts (auto) 6.8 Neutrophils % 64.1 D Lymphocytes % 18.1 D Monocytes % 17.2 H D Eosinophils % 0.0 Basophils % 0.6 D Nucleated RBC % 0 Sodium 138 Potassium 3.5 Chloride 102 Carbon Dioxide 28 Anion Gap 8 BUN 8.1 Creatinine 1.3 Est GFR (CKD-EPI)AfAm 86.67 Est GFR (CKD-EPI)NonAf 74.78 POC Glucometer Random Glucose 95 Lactic Acid Calcium 9.6 Phosphorus 3.8 Magnesium 2.2 Total Bilirubin 0.6 AST 28 ALT 25 Alkaline Phosphatase 74 Creatine Kinase 325 H Creatine Kinase Index No Result Required. CK-MB (CK-2) < 1.0 Troponin I < 0.02 Total Protein 8.5 H Albumin 4.4 Total Amylase 57 Lipase 76 TSH 0.25 L Free T4 1.00 Opiates Screen Methadone Screen Barbiturate Screen Phencyclidine Screen Ur Amphetamines Screen MDMA (Ecstasy) Screen Benzodiazepines Screen Cocaine Screen U Marijuana (THC) Screen Alcohol, Quantitative < 3 Influenza A (Rapid) Influenza B (Rapid) 06/20/19 06/20/19 06/20/19 15:00 15:00 15:02 WBC RBC Hgb Hct MCV MCH MCHC RDW Plt Count MPV Absolute Neuts (auto) Neutrophils % Lymphocytes % Monocytes % Eosinophils % Basophils % Nucleated RBC % Sodium Potassium Chloride Carbon Dioxide Anion Gap BUN Creatinine Est GFR (CKD-EPI)AfAm Est GFR (CKD-EPI)NonAf POC Glucometer 103 Random Glucose Lactic Acid 1.7 Calcium Phosphorus Magnesium Total Bilirubin AST ALT Alkaline Phosphatase Creatine Kinase Creatine Kinase Index CK-MB (CK-2) Troponin I Total Protein Albumin Total Amylase Lipase TSH Free T4 Opiates Screen Methadone Screen Barbiturate Screen Phencyclidine Screen Ur Amphetamines Screen MDMA (Ecstasy) Screen Benzodiazepines Screen Cocaine Screen U Marijuana (THC) Screen Alcohol, Quantitative Influenza A (Rapid) Negative Influenza B (Rapid) Positive A 06/20/19 06/21/19 06/21/19 19:45 05:40 05:40 WBC 9.4 RBC 4.41 Hgb 13.9 Hct 40.9 MCV 92.8 MCH 31.6 MCHC 34.0 RDW 12.6 Plt Count 235 MPV 8.7 Absolute Neuts (auto) 7.0 Neutrophils % 74.0 Lymphocytes % 14.9 Monocytes % 10.9 H Eosinophils % 0.0 Basophils % 0.2 Nucleated RBC % 0 Sodium 138 Potassium 3.8 Chloride 106 Carbon Dioxide 23 Anion Gap 9 BUN 6.9 L Creatinine 0.8 Est GFR (CKD-EPI)AfAm 141.89 Est GFR (CKD-EPI)NonAf 122.43 POC Glucometer Random Glucose 94 Lactic Acid Calcium 8.6 Phosphorus 3.7 Magnesium 1.8 Total Bilirubin 0.5 AST 27 ALT 22 Alkaline Phosphatase 61 Creatine Kinase Creatine Kinase Index CK-MB (CK-2) Troponin I Total Protein 7.3 Albumin 3.7 Total Amylase Lipase TSH Free T4 Opiates Screen Negative Methadone Screen Negative Barbiturate Screen Negative Phencyclidine Screen Negative Ur Amphetamines Screen Negative MDMA (Ecstasy) Screen Negative Benzodiazepines Screen Negative Cocaine Screen Negative U Marijuana (THC) Screen Positive A* Alcohol, Quantitative Influenza A (Rapid) Influenza B (Rapid) ASSESSMENT/PLAN: Sinus Bradycardia stable Symptoms likely due to Acute Influenza infection Abdominal pain Abnormal TSH IVF Tamiflu PO as tolerated Cardiology evaluation noted Cardiac Telemetry monitoring Dr Rob
--- NOTE | 2019-06-21 13:02 | ECHO ---
Name: MIKEYJUAN Exam:Adult Echocardiogram Study Date: 06/21/2019 08:22 AM Age: 29 yrs Height: 69 in Weight: 190 lb BSA: 2.0 m2 MMode/2D Measurements & Calculations IVSd: 0.72 cm Ao root diam: 3.0 cm LVIDd: 5.0 cm LA dimension: 2.9 cm LVIDs: 2.9 cm LVPWd: 0.84 cm EDV(Teich): 119.9 ml LVOT diam: 2.0 cm ESV(Teich): 32.0 ml LAV (MOD-bp): 59.7 ml Doppler Measurements & Calculations MV E max nolberto: 104.0 cm/sec Ao V2 max: 168.3 cm/sec MV A max nolberto: 34.9 cm/sec Ao max P.3 mmHg MV E/A: 3.0 MV dec time: 0.27 sec LIYAH(V,D): 1.7 cm2 LV V1 max P.7 mmHg MR max nolberto: 247.0 cm/sec LV V1 max: 96.5 cm/sec MR max P.4 mmHg TR max nolberto: 177.1 cm/sec PA V2 max: 109.9 cm/sec TR max P.6 mmHg PA max P.8 mmHg Med Peak E' Nolberto: 8.5 cm/sec PI Vmax: 168.3 cm/sec Med E/e': 12.3 Lat Peak E' Nolberto: 18.4 cm/sec Lat E/e': 5.7 Left Ventricle Left ventricular systolic function is normal. Ejection Fraction = 55-60%. Left Ventricular Filling pa ttern is normal for age. Right Ventricle The right ventricle is normal in size and function. Atria Normal left and right atrial size and function. Mitral Valve The mitral valve is normal in structure and function. There is no mitral valve stenosis. There is mil d mitral regurgitation. Tricuspid Valve The tricuspid valve is normal in structure and function. There is mild tricuspid regurgitation. Aortic Valve The aortic valve opens well. No hemodynamically significant valvular aortic stenosis. No aortic regur gitation is present. Pulmonic Valve The pulmonic valve is not well seen, but is grossly normal. There is no pulmonic valvular stenosis. T race pulmonic valvular regurgitation. Great Vessels The aortic root is normal size. Pericardium/Pleura There is no pericardial effusion. Interpretation Summary Left ventricular systolic function is normal. Ejection Fraction = 55-60%. The right ventricle is normal in size and function. There is mild mitral regurgitation. There is mild tricuspid regurgitation. There is no pericardial effusion. MD Alejandro *Emmett 06/21/2019 01:02 PM
--- NOTE | 2019-06-21 13:41 | EKG ---
Test Reason : Blood Pressure : / mmHG Vent. Rate : 057 BPM Atrial Rate : 057 BPM P-R Int : 150 ms QRS Dur : 100 ms QT Int : 416 ms P-R-T Axes : 066 046 045 degrees QTc Int : 404 ms SINUS BRADYCARDIA WITH SINUS ARRHYTHMIA OTHERWISE NORMAL ECG WHEN COMPARED WITH ECG OF 20-JUN-2019 14:59, RSR' PATTERN IN V1 IS NO LONGER PRESENT Confirmed by JUSTO GONZALEZ MD ([id number]) on 06/21/2019 1:40:30 PM Referred By: AMISH LEWIS Confirmed By:JUSTO GONZALEZ MD
--- NOTE | 2019-06-21 14:09 | EKG ---
Test Reason : Blood Pressure : / mmHG Vent. Rate : 053 BPM Atrial Rate : 053 BPM P-R Int : 158 ms QRS Dur : 106 ms QT Int : 394 ms P-R-T Axes : 038 048 043 degrees QTc Int : 369 ms SINUS BRADYCARDIA WITH SINUS ARRHYTHMIA RSR' OR QR PATTERN IN V1 SUGGESTS RIGHT VENTRICULAR CONDUCTION DELAY WHEN COMPARED WITH ECG OF 15-MAR-2019 20:25, NO SIGNIFICANT CHANGE WAS FOUND Confirmed by JUSTO GONZALEZ MD ([id number]) on 06/21/2019 2:08:25 PM Referred By: Confirmed By:JUSTO GONZALEZ MD
--- NOTE | 2019-06-21 15:11 | PN ---
Physical Exam: SUBJECTIVE: Patient seen and examined. No acute events overnight. Tolerating PO fluids. No emesis today although states he still feels nauseous with abdominal tenderness. On ROS + myalgias and mild chills. Denies further diarrhea/ hematemesis/ urinary symptoms. OBJECTIVE: Vital Signs Period Temp Pulse Resp BP Sys/[place] Pulse Ox Last 24 Hr 98.8 F-100.0 F 43-59 12-23 121-152/53-89 93-100 GENERAL: Lying in bed NAD HEENT: NCAT. Conjunctiva clear. LUNGS: CTABL HEART: Regular rate and rhythm, S1, S2 without murmurs ABDOMEN: Mild TTP all quadrants. Soft, nondistended. + BS. EXTREMITIES: 2+ pulses, warm, well-perfused, no edema. PSYCH: Normal mood, normal affect. SKIN: Warm, dry, normal turgor, no rashes or lesions noted Laboratory Results - last 24 hr 06/20/19 06/20/19 06/20/19 15:00 15:00 15:00 WBC 10.6 H RBC 4.77 Hgb 15.2 Hct 45.2 MCV 94.7 MCH 31.8 MCHC 33.6 RDW 12.4 Plt Count 253 D MPV 8.6 Absolute Neuts (auto) 6.8 Neutrophils % 64.1 D Lymphocytes % 18.1 D Monocytes % 17.2 H D Eosinophils % 0.0 Basophils % 0.6 D Nucleated RBC % 0 Sodium 138 Potassium 3.5 Chloride 102 Carbon Dioxide 28 Anion Gap 8 BUN 8.1 Creatinine 1.3 Est GFR (CKD-EPI)AfAm 86.67 Est GFR (CKD-EPI)NonAf 74.78 POC Glucometer Random Glucose 95 Lactic Acid Calcium 9.6 Phosphorus 3.8 Magnesium 2.2 Total Bilirubin 0.6 AST 28 ALT 25 Alkaline Phosphatase 74 Creatine Kinase 325 H Creatine Kinase Index No Result Required. CK-MB (CK-2) < 1.0 Troponin I < 0.02 Total Protein 8.5 H Albumin 4.4 Total Amylase 57 Lipase 76 TSH 0.25 L Free T4 1.00 Opiates Screen Methadone Screen Barbiturate Screen Phencyclidine Screen Ur Amphetamines Screen MDMA (Ecstasy) Screen Benzodiazepines Screen Cocaine Screen U Marijuana (THC) Screen Alcohol, Quantitative < 3 Influenza A (Rapid) Influenza B (Rapid) 06/20/19 06/20/19 06/20/19 15:00 15:00 15:02 WBC RBC Hgb Hct MCV MCH MCHC RDW Plt Count MPV Absolute Neuts (auto) Neutrophils % Lymphocytes % Monocytes % Eosinophils % Basophils % Nucleated RBC % Sodium Potassium Chloride Carbon Dioxide Anion Gap BUN Creatinine Est GFR (CKD-EPI)AfAm Est GFR (CKD-EPI)NonAf POC Glucometer 103 Random Glucose Lactic Acid 1.7 Calcium Phosphorus Magnesium Total Bilirubin AST ALT Alkaline Phosphatase Creatine Kinase Creatine Kinase Index CK-MB (CK-2) Troponin I Total Protein Albumin Total Amylase Lipase TSH Free T4 Opiates Screen Methadone Screen Barbiturate Screen Phencyclidine Screen Ur Amphetamines Screen MDMA (Ecstasy) Screen Benzodiazepines Screen Cocaine Screen U Marijuana (THC) Screen Alcohol, Quantitative Influenza A (Rapid) Negative Influenza B (Rapid) Positive A 06/20/19 06/21/19 06/21/19 19:45 05:40 05:40 WBC 9.4 RBC 4.41 Hgb 13.9 Hct 40.9 MCV 92.8 MCH 31.6 MCHC 34.0 RDW 12.6 Plt Count 235 MPV 8.7 Absolute Neuts (auto) 7.0 Neutrophils % 74.0 Lymphocytes % 14.9 Monocytes % 10.9 H Eosinophils % 0.0 Basophils % 0.2 Nucleated RBC % 0 Sodium 138 Potassium 3.8 Chloride 106 Carbon Dioxide 23 Anion Gap 9 BUN 6.9 L Creatinine 0.8 Est GFR (CKD-EPI)AfAm 141.89 Est GFR (CKD-EPI)NonAf 122.43 POC Glucometer Random Glucose 94 Lactic Acid Calcium 8.6 Phosphorus 3.7 Magnesium 1.8 Total Bilirubin 0.5 AST 27 ALT 22 Alkaline Phosphatase 61 Creatine Kinase Creatine Kinase Index CK-MB (CK-2) Troponin I Total Protein 7.3 Albumin 3.7 Total Amylase Lipase TSH Free T4 Opiates Screen Negative Methadone Screen Negative Barbiturate Screen Negative Phencyclidine Screen Negative Ur Amphetamines Screen Negative MDMA (Ecstasy) Screen Negative Benzodiazepines Screen Negative Cocaine Screen Negative U Marijuana (THC) Screen Positive A* Alcohol, Quantitative Influenza A (Rapid) Influenza B (Rapid) Active Medications Generic Name Dose Route Start Last Admin Trade Name Freq PRN Reason Stop Dose Admin Acetaminophen 650 mg 06/20/19 19:46 Tylenol - PO Q6H PRN PAIN LEVEL 7 - 10 Chlorhexidine Gluconate 1 applic 06/20/19 22:00 06/20/19 23:30 Hibiclens For Decolonization - TP 1 applic HS GINGER Administration Heparin Sodium (Porcine) 5,000 unit 06/20/19 19:00 06/21/19 14:18 Heparin - SQ 5,000 unit TID GINGER Administration Sodium Chloride 1,000 mls @ 75 mls/hr 06/21/19 10:15 06/21/19 10:50 Normal Saline - IV 75 mls/hr ASDIR GINGER Administration Metoclopramide HCl 10 mg 06/21/19 00:58 06/21/19 05:27 Reglan Injection - IVPUSH 10 mg Q4H PRN Administration NAUSEA AND/OR VOMITING Mupirocin 1 applic 06/20/19 22:00 06/21/19 10:50 Bactroban Ointment (For Decolonization) - NS 06/25/19 21:59 1 applic BID GINGER Administration Ondansetron HCl 4 mg 06/21/19 00:15 06/21/19 04:52 Zofran Injection IVPUSH 4 mg Q4H PRN Administration NAUSEA Oseltamivir Phosphate 75 mg 06/20/19 22:00 06/21/19 10:50 Tamiflu - PO 06/25/19 21:59 75 mg BID GINGER Administration ASSESSMENT/PLAN: 29 y.o. M past surgical hx cholecystectomy and daily marijuana use presented for nausea, vomiting, diarrhea, chills, sweats and malaise w/ unresponsive episode during CT scan --found to be influenza B+ and bradycardic. #Neuro -AOx3 no acute issues -AMS resolved -Utox + for marijuana; + for opiates february 2019 #CV -EKG today qtc 404: sinus mali -Bradycardia improved, in 50s today -cardio following, bradycardia likely 2/2 acute viral syndrome w/ dehydration -Continue to monitor on tele -F/u echo #Pulm -Flu B positive -C/w tamiflu -Droplet precautions -CXR negative for acute findings #GI -Has had prior ED visit 2/2 emesis-- possibly 2/2 substance use -CT a/p negative for acute pathology -f/u stool studies, diarrhea appears to be resolving -zofran prn for nausea #Renal -JOE; trend Cr, improving -C/w IVF #Endo -TSH low, T4 normal, f/u T3 #ID -no abx at this time #Pain control -tylenol prn #FEN -NS @ 75 ml/hr-- can d/c if tolerating increased oral intake today -monitor cmp -tolerating small amounts PO fluid #PPX -heparin sq #Dispo tele Visit type - Emergency Visit Emergency Visit: No - New Patient This patient is new to me today: Yes Date on this admission: 06/21/19 - Critical Care Critical Care patient: Yes Total Critical Care Time (in minutes): 36 Critical Care Statement: The care of this patient involved high complexity decision making to prevent further life threatening deterioration of the patient 's condition and/or to evaluate & treat vital organ system(s) failure or risk of failure. ATTENDING PHYSICIAN STATEMENT I saw and evaluated the patient. I reviewed the resident's note and discussed the case with the resident. I agree with the resident's findings and plan as documented. SUBJECTIVE: OBJECTIVE: ASSESSMENT AND PLAN:
[2019-06-21] MEDS: POTASSIUM CHLORIDE 40 MEQ in SODIUM CHLORIDE 1,000 ML IVPB SCH (16:49)
--- NOTE | 2019-06-21 18:02 | PN ---
Physical Exam: SUBJECTIVE: Patient seen and examined JOSÉ MIGUEL Endorses nausea in AM, improved by PM. No vomitting. [place] fatigue for multiple weeks and thinks smoking Marijuana helps. OBJECTIVE: Vital Signs Period Temp Pulse Resp BP Sys/[place] Pulse Ox Last 24 Hr 98.8 F-100.0 F 43-60 12-23 121-152/53-85 100-100 GENERAL: The patient is awake, alert, and fully oriented. Mildly anxious HEAD: Normal with no signs of trauma. EYES: sclera anicteric, conjunctiva clear. No ptosis. ENT: Ears normal, nares patent, oropharynx clear without exudates, moist mucous membranes. NECK: Trachea midline, full range of motion, supple. LUNGS: Breath sounds equal, clear to auscultation bilaterally, no wheezes, no crackles, no accessory muscle use. HEART: Regular rate and rhythm, S1, S2 without murmur, rub or gallop. ABDOMEN: Soft, nontender, nondistended, normoactive bowel sounds, no guarding, no rebound. EXTREMITIES: 2+ pulses, warm, well-perfused, no edema. NEUROLOGICAL: Normal speech, gait not observed. Moving all extremities spontaneously PSYCH: Normal mood, normal affect. SKIN: Warm, dry, normal turgor, no rashes or lesions noted Laboratory Results - last 24 hr 06/20/19 06/20/19 06/21/19 15:00 19:45 05:40 WBC 9.4 RBC 4.41 Hgb 13.9 Hct 40.9 MCV 92.8 MCH 31.6 MCHC 34.0 RDW 12.6 Plt Count 235 MPV 8.7 Absolute Neuts (auto) 7.0 Neutrophils % 74.0 Lymphocytes % 14.9 Monocytes % 10.9 H Eosinophils % 0.0 Basophils % 0.2 Nucleated RBC % 0 Sodium 138 Potassium 3.5 Chloride 102 Carbon Dioxide 28 Anion Gap 8 BUN 8.1 Creatinine 1.3 Est GFR (CKD-EPI)AfAm 86.67 Est GFR (CKD-EPI)NonAf 74.78 Random Glucose 95 Calcium 9.6 Phosphorus 3.8 Magnesium 2.2 Total Bilirubin 0.6 AST 28 ALT 25 Alkaline Phosphatase 74 Total Protein 8.5 H Albumin 4.4 Total Amylase 57 Lipase 76 TSH 0.25 L Free T4 1.00 Opiates Screen Negative Methadone Screen Negative Barbiturate Screen Negative Phencyclidine Screen Negative Ur Amphetamines Screen Negative MDMA (Ecstasy) Screen Negative Benzodiazepines Screen Negative Cocaine Screen Negative U Marijuana (THC) Screen Positive A* 06/21/19 05:40 WBC RBC Hgb Hct MCV MCH MCHC RDW Plt Count MPV Absolute Neuts (auto) Neutrophils % Lymphocytes % Monocytes % Eosinophils % Basophils % Nucleated RBC % Sodium 138 Potassium 3.8 Chloride 106 Carbon Dioxide 23 Anion Gap 9 BUN 6.9 L Creatinine 0.8 Est GFR (CKD-EPI)AfAm 141.89 Est GFR (CKD-EPI)NonAf 122.43 Random Glucose 94 Calcium 8.6 Phosphorus 3.7 Magnesium 1.8 Total Bilirubin 0.5 AST 27 ALT 22 Alkaline Phosphatase 61 Total Protein 7.3 Albumin 3.7 Total Amylase Lipase TSH Free T4 Opiates Screen Methadone Screen Barbiturate Screen Phencyclidine Screen Ur Amphetamines Screen MDMA (Ecstasy) Screen Benzodiazepines Screen Cocaine Screen U Marijuana (THC) Screen Active Medications Generic Name Dose Route Start Last Admin Trade Name Freq PRN Reason Stop Dose Admin Acetaminophen 650 mg 06/20/19 19:46 Tylenol - PO Q6H PRN PAIN LEVEL 7 - 10 Chlorhexidine Gluconate 1 applic 06/20/19 22:00 06/20/19 23:30 Hibiclens For Decolonization - TP 1 applic HS GINGER Administration Heparin Sodium (Porcine) 5,000 unit 06/20/19 19:00 06/21/19 14:18 Heparin - SQ 5,000 unit TID GINGER Administration Sodium Chloride 1,000 mls @ 75 mls/hr 06/21/19 10:15 06/21/19 10:50 Normal Saline - IV 75 mls/hr ASDIR GINGER Administration Metoclopramide HCl 10 mg 06/21/19 00:58 06/21/19 05:27 Reglan Injection - IVPUSH 10 mg Q4H PRN Administration NAUSEA AND/OR VOMITING Mupirocin 1 applic 06/20/19 22:00 06/21/19 10:50 Bactroban Ointment (For Decolonization) - NS 06/25/19 21:59 1 applic BID GINGER Administration Ondansetron HCl 4 mg 06/21/19 00:15 06/21/19 17:13 Zofran Injection IVPUSH 4 mg Q4H PRN Administration NAUSEA Oseltamivir Phosphate 75 mg 06/20/19 22:00 06/21/19 10:50 Tamiflu - PO 06/25/19 21:59 75 mg BID GINGER Administration ASSESSMENT/PLAN: 29M PMH of chronic MJ usage presented to [facility] for complaint of chills, nausea, vomiting, diarrhea, and generalized weakness admitted for intractable vomiting x3d. In the ED, found to have symptomatic bradycardia with episodes of lethargy and possible LOC. # bradycardia --unlikely 2/2 to cardiac ischemia, possibly 2/2 acute viral syndrome > Sinus bradycardia in most recent EKG - 53 bpm, last EKG in January was 54 bpm. On monitor patient was down to 40's. - questionable ?syncopal episodes while in bradycardia in 30s-40s > echo(06/21/19): LVEF 55-60% > trop neg > TSH 0.25(low), T4 1.0 > Lyme titers --pending > CXR: negative for acute pathology > Cardiology consulted(Emmett): -- continued telemetry monitoring and follow up echo. # intractable vomiting --likely 2/2 viral illness, less likely MJ-induced hyperemesis, less likely GI path > CT A/P: neg for acute path > FOBT --pending - metoclompramide, zofran, famotidine # influenza B > Influenza B positive - Tamiflu 75 mg PO BID, day 1 #chronic substance use disorder > UDS: positive for THC - counseled pt on drug abstinence # JOE -- 2/2 relative hypovolemia from vomiting and diarrhea --improving > Cr 1.3 ...0.8 - IVF # Generalized weakness --improving - PT ordered # FEN - NS @ 75 ml/hr - FLD DVT Heparin SQ Admitted to ICU for close surveillance monitor and possible need for pacing Visit type - Emergency Visit Emergency Visit: No - New Patient This patient is new to me today: No - Critical Care Critical Care patient: No ATTENDING PHYSICIAN STATEMENT I saw and evaluated the patient. I reviewed the resident's note and discussed the case with the resident. I agree with the resident's findings and plan as documented. SUBJECTIVE: OBJECTIVE: ASSESSMENT AND PLAN:
--- NOTE | 2019-06-21 18:35 | PN ---
Teaching Attending Note Name of Resident: Elia Vila ATTENDING PHYSICIAN STATEMENT I saw and evaluated the patient. I reviewed the resident's note and discussed the case with the resident. I agree with the resident's findings and plan as documented. SUBJECTIVE: seen at 9 am he refused to answer my questions . to the residents: He felt Abd pain, N/V . Reported streaks of bright red blood in his emesis this am. very nauseous OBJECTIVE: looks ill. MMM, round equal pupils, reactive to light. no facfial droop. cv: RRR, possibel 2/6 Sm at LUSB. Lungs: CTAB Ext : No edema or erythema Abd: soft, TTP in LLQ and suprapubic area. ASSESSMENT AND PLAN: 29 y/o man with h/o marijuana use and cholecystectomy. He presented with fever, N/V , abd pain, and fatigue and developed syncopal episodes in ER . he was found to have Flu B and bradycardia . 1- Influenza B: - tamiflu. - No evidence of PNA. no need fro Abx . - repeat cxray in am PA , lateral to evaluate the densities that were found. to me might be external artifact 2- N/V/Abd pain: likely dueto the flu. bright red with emesis is likely due to Jeri Gordon tear. Hb stable monitor start PPI zofran for nasuea. dc reglan . if another agent is needed can add compazine IVF 3- Sinus mali; literature was reviewed. Marijuana can cause symptomatic sinus bradycardia . could be due to the Flu. need to r/o lyme - send lyme serology - avoid marijuana - tele : with sinus mali and no high degree blocl. EKG also showed sinus mali 4- syncope: could be due the bradycardia VS vasvagal VS orthostatic hypotension - IVF - tele 5- Low TSH. this could be due to sick euthyroid syndrome or subclinical hyperthyroidism. T3,4 are pending. we can;t make decision on TFTs during this acute sickness. need to redo as out pt in a healthy steady state 5- Add Lovenox tx to the floor
[2019-06-21] MEDS ORDERED: ACETAMINOPHEN 1000 MG/100 ML VIAL (NON FORMULARY) IVPB PRN (19:22)
[2019-06-21] MEDS: CHLORHEXIDINE GLUCONATE 4% CLEANSER FOR DECOLONIZATION TP SCH (21:44)
[2019-06-21] MEDS ORDERED: MELATONIN 5 MG TABLETS PO ONE (22:22)
[2019-06-21] MEDS ORDERED: SIMETHICONE 40 MG/0.6 ML BOTTLE PO PRN (22:24)
[2019-06-21] MEDS ORDERED: MORPHINE SULFATE 2 MG/ML VIAL ONE (22:34)
[2019-06-21] MEDS: MORPHINE SULFATE 2 MG/ML VIAL IVPUSH PRN (22:40)
[2019-06-22] MEDS: ONDANSETRON 4 MG/2 ML VIAL IVPUSH PRN ×5 (01:09→21:25)
[2019-06-22] MEDS: MORPHINE SULFATE 2 MG/ML VIAL IVPUSH PRN ×2 (04:00→10:46)
[2019-06-22] MEDS: HEPARIN NA (PORCINE) 5,000 UNITS/ML 1ML VIAL SQ SCH ×3 (05:07→21:24)
[2019-06-22 05:54] LABS: HEMATOCRIT 41.1 % (35.4-49); HEMOGLOBIN 14.1 GM/dL (11.7-16.9); MCH 31.9 pg (25.7-33.7); MCHC 34.3 g/dl (32.0-35.9); MEAN PLT VOLUME 8.8 fl (7.5-11.1); PLATELET COUNT 223 K/MM3 (134-434); RBC 4.42 M/mm3 (4.00-5.60); RDW 12.5 % (11.9-15.9); WHITE BLOOD COUNT 6.5 K/mm3 (4.0-10.0)
[2019-06-22 06:18] LABS: BLOOD UREA NITROGEN 8.7 mg/dL (7-18); CALCIUM 8.7 mg/dL (8.5-10.1); CREATININE 0.8 mg/dL (0.55-1.3); MAGNESIUM 2.1 mg/dL (1.8-2.4); PHOSPHOROUS 2.8 mg/dL (2.5-4.9)
[2019-06-22] MEDS ORDERED: PT OWN MED DRAWER 7, Y5N ONE ×3 (09:29→21:13)
[2019-06-22] MEDS: MUPIROCIN 2% TOPICAL OINTMENT FOR DECOLONIZATION NS SCH ×2 (10:40→21:25)
[2019-06-22] MEDS: PANTOPRAZOLE 40 MG TABLET (FP) PO SCH (10:44)
[2019-06-22] MEDS: OSELTAMIVIR PHOSPHATE 75 MG CAPSULE PO SCH ×2 (10:44→22:49)
[2019-06-22] MEDS: SODIUM CHLORIDE 1,000 ML IV SCH (10:45)
--- NOTE | 2019-06-22 11:09 | PN ---
Progress Note (short form) - Note Progress Note: s: feels pain in chest worse with coughing, palpation, vomiting. no palps, dizziness, dyspnea Current Medications Acetaminophen (Ofirmev Injection -) 1,000 mg IVPB Q6H PRN PRN Reason: PAIN LEVEL 6-10 Last Admin: 06/21/19 19:38 Dose: 1,000 mg Chlorhexidine Gluconate (Hibiclens For Decolonization -) 1 applic TP HS [facility] Last Admin: 06/21/19 21:44 Dose: 1 applic Heparin Sodium (Porcine) (Heparin -) 5,000 unit SQ TID [facility] Last Admin: 06/22/19 05:07 Dose: 5,000 unit Sodium Chloride (Normal Saline -) 1,000 mls @ 75 mls/hr IV ASDIR [facility] Last Admin: 06/22/19 10:45 Dose: 75 mls/hr Morphine Sulfate (Morphine Sulfate) 2 mg IVPUSH Q6H PRN PRN Reason: PAIN LEVEL 4 - 6 Last Admin: 06/22/19 10:46 Dose: 2 mg Mupirocin (Bactroban Ointment (For Decolonization) -) 1 applic NS BID [facility] Stop: 06/25/19 21:59 Last Admin: 06/22/19 10:40 Dose: Not Given Ondansetron HCl (Zofran Injection) 4 mg IVPUSH Q4H PRN PRN Reason: NAUSEA Last Admin: 06/22/19 06:33 Dose: 4 mg Oseltamivir Phosphate (Tamiflu -) 75 mg PO BID [facility] Stop: 06/25/19 21:59 Last Admin: 06/22/19 10:44 Dose: 75 mg Pantoprazole Sodium (Protonix -) 40 mg PO DAILY [facility] Last Admin: 06/22/19 10:44 Dose: 40 mg Simethicone (Mylicon Liquid -) 40 mg PO QID PRN PRN Reason: GAS Vital Signs Period Temp Pulse Resp BP Sys/[place] Pulse Ox Last 24 Hr 98.7 F-98.9 F 50-74 16-20 120-141/60-82 100 Constitutional: Yes: Calm Eyes: Yes: Conjunctiva Clear HENT: Yes: Atraumatic, Normocephalic Respiratory: Yes: CTA Bilaterally Gastrointestinal: Yes: Soft (no rebound or guarding) Cardiovascular: Yes: Regular Rate and Rhythm JVD: No Carotid Bruit: No Heart Sounds: Yes: S1, S2 (rrr, no m/r/g) Edema: No Neurological: Yes: Alert, Oriented Psychiatric: Yes: not agitated Sinus mali 53bpm, inc RBBB Echo: Pending Imaging - Results X-ray: Report Reviewed EKG: Image Reviewed tele: sinus, sinus mali Assessment/Plan IMP: Viral syndrome, Influenza B + Sinus bradycardia Reports of altered mental status- now at baseline REC: - echo nl LV/RV function - mental status at baseline - sinus bradycardia unlikely to be related to alt mental status, were more likely due to acute viral syndrome with fever/ relative dehydration. - chest pain more likely MSK - dc tele
--- NOTE | 2019-06-22 14:49 | PN ---
Teaching Attending Note Name of Resident: Elia Vila ATTENDING PHYSICIAN STATEMENT I saw and evaluated the patient. I reviewed the resident's note and discussed the case with the resident. I agree with the resident's findings and plan as documented. SUBJECTIVE: interview and exam was deferred as pt was not amenable , speaking on the phone. OBJECTIVE: NAD. ASSESSMENT AND PLAN: 29 y/o man with h/o marijuana use and cholecystectomy. He presented with fever, N/V , abd pain, and fatigue and developed syncopal episodes in ER . he was found to have Flu B and bradycardia . 1- Influenza B: - tamiflu. - No evidence of PNA. repeat cxray with resolution of the densities seen on prior ( might ve' been an artifact ) 2- N/V/Abd pain: likely due to the flu. Possible Amelia Gordon tear. per RN continued to vomit over night - cont PPI - cont zofran. add compazine - IVF - OB in stool neg - cont liquid diet 3- Sinus mali; literature was reviewed. Marijuana can cause symptomatic sinus bradycardia . could be due to the Flu. - lyme serology pending - avoid marijuana - tele : with sinus mali and no high degree block again . 4- Syncope: could be due the bradycardia VS vasvagal VS orthostatic hypotension - IVF - tele 5- Low TSH, Nl T3,4. this could be due to sick euthyroid syndrome or subclinical hyperthyroidism. - repeat TFTs as out pt 5- cont: cont heparin SQ
--- NOTE | 2019-06-22 15:31 | PN ---
Physical Exam: SUBJECTIVE: Patient seen and examined NAEON Tele showing occasional bouts of irreg rhythm Endorses nausea and vomitting(green, w/ brown specks). Denies blood in vomitus. Abd pain worse in RLQ. States that lethargy has improved OBJECTIVE: Vital Signs Period Temp Pulse Resp BP Sys/[place] Pulse Ox Last 24 Hr 98.7 F-98.9 F 50-74 16-20 102-141/68-87 100 GENERAL: The patient is awake, alert, and fully oriented HEAD: Normal with no signs of trauma. EYES: sclera anicteric, conjunctiva clear. No ptosis. ENT: Ears normal, nares patent, oropharynx clear without exudates, moist mucous membranes. NECK: Trachea midline, full range of motion, supple. LUNGS: Breath sounds equal, clear to auscultation bilaterally, no wheezes, no crackles, no accessory muscle use. HEART: Regular rate and rhythm, S1, S2 without murmur, rub or gallop. ABDOMEN: Soft, nondistended, hypoactive bowel sounds. Diffuse abdominal tenderness, worst in RLQ EXTREMITIES: 2+ pulses, warm, well-perfused, no edema. NEUROLOGICAL: Normal speech, gait not observed. Moving all extremities spontaneously PSYCH: Normal mood, normal affect. SKIN: Warm, dry, normal turgor, no rashes or lesions noted Laboratory Results - last 24 hr 06/20/19 06/21/19 06/22/19 15:00 16:40 05:25 WBC 6.5 RBC 4.42 Hgb 14.1 Hct 41.1 MCV 93.0 MCH 31.9 MCHC 34.3 RDW 12.5 Plt Count 223 MPV 8.8 Sodium Potassium Chloride Carbon Dioxide Anion Gap BUN Creatinine Est GFR (CKD-EPI)AfAm Est GFR (CKD-EPI)NonAf Random Glucose Calcium Phosphorus Magnesium Free T3 2.3 Stool Occult Blood Negative 06/22/19 05:25 WBC RBC Hgb Hct MCV MCH MCHC RDW Plt Count MPV Sodium 136 Potassium 4.0 Chloride 104 Carbon Dioxide 27 Anion Gap 6 L BUN 8.7 Creatinine 0.8 Est GFR (CKD-EPI)AfAm 141.89 Est GFR (CKD-EPI)NonAf 122.43 Random Glucose 85 Calcium 8.7 Phosphorus 2.8 Magnesium 2.1 Free T3 Stool Occult Blood Active Medications Generic Name Dose Route Start Last Admin Trade Name Freq PRN Reason Stop Dose Admin Acetaminophen 1,000 mg 06/21/19 19:22 06/21/19 19:38 Ofirmev Injection - IVPB 1,000 mg Q6H PRN Administration PAIN LEVEL 6-10 Chlorhexidine Gluconate 1 applic 06/20/19 22:00 06/21/19 21:44 Hibiclens For Decolonization - TP 1 applic HS GINGER Administration Heparin Sodium (Porcine) 5,000 unit 06/20/19 19:00 06/22/19 14:35 Heparin - SQ 5,000 unit TID GINGER Administration Sodium Chloride 1,000 mls @ 75 mls/hr 06/21/19 10:15 06/22/19 10:45 Normal Saline - IV 75 mls/hr ASDIR GINGER Administration Morphine Sulfate 2 mg 06/21/19 22:29 06/22/19 10:46 Morphine Sulfate IVPUSH 2 mg Q6H PRN Administration PAIN LEVEL 4 - 6 Mupirocin 1 applic 06/20/19 22:00 06/22/19 10:40 Bactroban Ointment (For Decolonization) - NS 06/25/19 21:59 Not Given BID GINGER Ondansetron HCl 4 mg 06/21/19 00:15 06/22/19 12:14 Zofran Injection IVPUSH 4 mg Q4H PRN Administration NAUSEA Oseltamivir Phosphate 75 mg 06/20/19 22:00 06/22/19 10:44 Tamiflu - PO 06/25/19 21:59 75 mg BID GINGER Administration Pantoprazole Sodium 40 mg 06/22/19 10:00 06/22/19 10:44 Protonix - PO 40 mg DAILY GINGER Administration Prochlorperazine Maleate 5 mg 06/22/19 13:23 Compazine - PO Q4H PRN NAUSEA AND/OR VOMITING Simethicone 40 mg 06/21/19 22:24 Mylicon Liquid - PO QID PRN GAS ASSESSMENT/PLAN: 29M PMH of chronic MJ usage presented to [facility] for complaint of chills, nausea, vomiting, diarrhea, and generalized weakness admitted for intractable vomiting x3d. In the ED, found to have symptomatic bradycardia with episodes of lethargy and possible LOC. Still having nausea and vomiting. # bradycardia --unlikely 2/2 to cardiac ischemia, possibly 2/2 acute viral syndrome > Sinus bradycardia in most recent EKG - 53 bpm, last EKG in January was 54 bpm. On monitor patient was down to 40's. - questionable ?syncopal episodes while in bradycardia in 30s-40s > echo(06/21/19): LVEF 55-60% > trop neg > TSH 0.25(low), T4 1.0 > Lyme titers --pending > CXR: negative for acute pathology > Cardiology consulted(Emmett): -- continued telemetry monitoring and follow up echo. -- rec dc Tele # intractable vomiting --likely 2/2 viral illness, less likely MJ-induced hyperemesis, less likely GI path > CT A/P: neg for acute path > FOBT: neg - metoclompramide, zofran, famotidine # influenza B > Influenza B positive - Tamiflu 75 mg PO BID, day 1 #chronic substance use disorder > UDS: positive for THC - counseled pt on drug abstinence # JOE -- 2/2 relative hypovolemia from vomiting and diarrhea --improving > Cr 1.3 ...0.8 - IVF # Generalized weakness --improving - PT ordered # FEN - NS @ 75 ml/hr - FLD DVT Heparin SQ Admitted to tele for close surveillance monitor and possible need for pacing Visit type - Emergency Visit Emergency Visit: No - New Patient This patient is new to me today: No - Critical Care Critical Care patient: No ATTENDING PHYSICIAN STATEMENT I saw and evaluated the patient. I reviewed the resident's note and discussed the case with the resident. I agree with the resident's findings and plan as documented. SUBJECTIVE: OBJECTIVE: ASSESSMENT AND PLAN:
[2019-06-22] MEDS: CHLORHEXIDINE GLUCONATE 4% CLEANSER FOR DECOLONIZATION TP SCH (21:25)
[2019-06-23] MEDS: SODIUM CHLORIDE 1,000 ML IV SCH (00:25)
[2019-06-23] MEDS: HEPARIN NA (PORCINE) 5,000 UNITS/ML 1ML VIAL SQ SCH ×3 (05:35→21:18)
[2019-06-23] MEDS ORDERED: ACETAMINOPHEN 325 MG TABLET (FP) PO PRN (05:46)
[2019-06-23] MEDS: ONDANSETRON 4 MG/2 ML VIAL IVPUSH PRN ×4 (06:01→19:34)
[2019-06-23 06:10] LABS: HEMATOCRIT 42.6 % (35.4-49); HEMOGLOBIN 14.4 GM/dL (11.7-16.9); MCH 31.4 pg (25.7-33.7); MCHC 33.7 g/dl (32.0-35.9); MEAN CELL VOLUME 93.1 fl (80-96); PLATELET COUNT 235 K/MM3 (134-434); RBC 4.58 M/mm3 (4.00-5.60); RDW 12.4 % (11.9-15.9); WHITE BLOOD COUNT 6.7 K/mm3 (4.0-10.0)
[2019-06-23 06:21] LABS: BLOOD UREA NITROGEN 8.5 mg/dL (7-18); CALCIUM 8.5 mg/dL (8.5-10.1); CREATININE 0.9 mg/dL (0.55-1.3); MAGNESIUM 2.1 mg/dL (1.8-2.4); PHOSPHOROUS 2.8 mg/dL (2.5-4.9)
[2019-06-23] MEDS: MORPHINE SULFATE 2 MG/ML VIAL IVPUSH PRN (07:14)
[2019-06-23] MEDS: SIMETHICONE 80 MG TAB.CHEW (FP) PO PRN ×3 (08:48→21:17)
[2019-06-23] MEDS ORDERED: PT OWN MED DRAWER 7, Y5N ONE ×3 (08:51→19:57)
[2019-06-23] MEDS: PANTOPRAZOLE 40 MG TABLET (FP) PO SCH (09:17)
[2019-06-23] MEDS: OSELTAMIVIR PHOSPHATE 75 MG CAPSULE PO SCH ×2 (09:17→21:17)
[2019-06-23] MEDS: MUPIROCIN 2% TOPICAL OINTMENT FOR DECOLONIZATION NS SCH ×2 (09:17→21:21)
[2019-06-23] MEDS: PROCHLORPERAZINE MALEATE 5 MG TABLET PO PRN ×3 (09:17→21:15)
--- NOTE | 2019-06-23 09:32 | PN ---
Progress Note (short form) - Note Progress Note: Subjective: No fever or chills. He has abd pain, and contot have vomiting. saw streaks of blood this am . has emesis in the bucket at his bedside now ( brown/yellow liquid, no blood ) . no diarrhea. no cough. SOB . he feels light headed when he stands only Objective: Vital Signs: Last Vital Signs Temp Pulse Resp BP Pulse Ox 98.2 F 54 L 14 133/110 H 100 06/23/19 02:00 06/23/19 08:00 06/23/19 08:18 06/23/19 06:00 06/23/19 08:18 Laboratory Results - last 24 hr 06/21/19 06/23/19 06/23/19 05:40 05:32 05:32 WBC 6.7 RBC 4.58 Hgb 14.4 Hct 42.6 MCV 93.1 MCH 31.4 MCHC 33.7 RDW 12.4 Plt Count 235 MPV 9.0 Sodium 139 Potassium 4.0 Chloride 105 Carbon Dioxide 28 Anion Gap 6 L BUN 8.5 Creatinine 0.9 Est GFR (CKD-EPI)AfAm 135.19 Est GFR (CKD-EPI)NonAf 116.64 Random Glucose 87 Calcium 8.5 Phosphorus 2.8 Magnesium 2.1 Lyme Screen IgG & IgM <0.91 Physical Exam: NAD , awake, cooperative CV: RRR, no MRG Lungs: CTAB , no crackles. decreased breath sounds at bases. Ext: No edema or erythema. no rash. Abd: soft, ND, nl BS, TTP in RUQ, LLQ, epigastric area. No guarding. A/P 29 y/o man with h/o marijuana use and cholecystectomy. He presented with fever, N/V , abd pain, and fatigue and developed syncopal episodes in ER . he was found to have Flu B and bradycardia . 1- Influenza B: - tamiflu for total of 5 days . starts on 06/20 sammy - repeat Cxray . no evidence of PNA on initial 2- N/V/Abd pain: likely due to the flu. Possible Amelia Gordon tear, with occasional streaks of red blood. . vomit in bucket with no evidence of blood . Hb is stable. - switch PPI to IV - cont zofran and compazine - make NPO and switch IVF to D5NS+ Kcl - obtain KUB - monitor electrolytes 3- Sinus mali; Marijuana can cause symptomatic sinus bradycardia and even high degree block . could be due to the Flu. - lyme serology pending - avoid marijuana - tele : with sinus mali, but no events . 4- Syncope: could be due the bradycardia VS vasvagal VS orthostatic hypotension - IVF - tele - might need cardiac monitoring as out pt 5- Low TSH, Nl T3,4. this could be due to sick euthyroid syndrome or subclinical hyperthyroidism. - repeat TFTs as out pt 5- Cont: cont heparin SQ Visit type - Emergency Visit Emergency Visit: Yes ED Registration Date: 06/20/19 Care time: The patient presented to the Emergency Department on the above date and was hospitalized for further evaluation of their emergent condition. - New Patient This patient is new to me today: No - Critical Care Critical Care patient: No
[2019-06-23] MEDS: PANTOPRAZOLE SODIUM 40 MG VIAL IVPUSH SCH (10:00)
--- NOTE | 2019-06-23 11:17 | PN ---
Progress Note (short form) - Note Progress Note: s: complains of nausea, vomiting. no chest pain, palps, dizziness, dyspnea Current Medications Acetaminophen (Ofirmev Injection -) 1,000 mg IVPB Q6H PRN PRN Reason: PAIN LEVEL 6-10 Last Admin: 06/21/19 19:38 Dose: 1,000 mg Chlorhexidine Gluconate (Hibiclens For Decolonization -) 1 applic TP HS [facility] Last Admin: 06/22/19 21:25 Dose: 1 applic Heparin Sodium (Porcine) (Heparin -) 5,000 unit SQ TID [facility] Last Admin: 06/23/19 05:35 Dose: 5,000 unit Potassium Chloride 10 meq/ (Dextrose/Sodium Chloride) 1,005 mls @ 100 mls/hr IVPB Q10H [facility] Morphine Sulfate (Morphine Sulfate) 2 mg IVPUSH Q6H PRN PRN Reason: PAIN LEVEL 4 - 6 Last Admin: 06/23/19 07:14 Dose: 2 mg Mupirocin (Bactroban Ointment (For Decolonization) -) 1 applic NS BID [facility] Stop: 06/25/19 21:59 Last Admin: 06/23/19 09:17 Dose: Not Given Ondansetron HCl (Zofran Injection) 4 mg IVPUSH Q4H PRN PRN Reason: NAUSEA Last Admin: 06/23/19 06:01 Dose: 4 mg Oseltamivir Phosphate (Tamiflu -) 75 mg PO BID [facility] Stop: 06/25/19 21:59 Last Admin: 06/23/19 09:17 Dose: 75 mg Pantoprazole Sodium (Protonix Iv) 40 mg IVPUSH DAILY [facility] Prochlorperazine Maleate (Compazine -) 5 mg PO Q4H PRN PRN Reason: NAUSEA AND/OR VOMITING Last Admin: 06/23/19 09:17 Dose: 5 mg Simethicone (Mylicon -) 40 mg PO QID PRN PRN Reason: GAS Last Admin: 06/23/19 08:48 Dose: 40 mg Vital Signs Period Temp Pulse Resp BP Sys/[place] Pulse Ox Last 24 Hr 98.2 F-99.2 F 53-74 14-30 109-143/56-110 100-100 Constitutional: Yes: Calm Eyes: Yes: Conjunctiva Clear HENT: Yes: Atraumatic, Normocephalic Respiratory: Yes: CTA Bilaterally Gastrointestinal: Yes: Soft (no rebound or guarding) Cardiovascular: Yes: Regular Rate and Rhythm JVD: No Carotid Bruit: No Heart Sounds: Yes: S1, S2 (rrr, no m/r/g) Edema: No Neurological: Yes: Alert, Oriented Psychiatric: Yes: not agitated Sinus mali 53bpm, inc RBBB Imaging - Results X-ray: Report Reviewed EKG: Image Reviewed tele: sinus, sinus mali Assessment/Plan IMP: Viral syndrome, Influenza B + Sinus bradycardia Reports of altered mental status- now at baseline REC: - echo nl LV/RV function - mental status at baseline - sinus bradycardia unlikely to be related to alt mental status, were more likely due to acute viral syndrome with fever/ relative dehydration. - chest pain more likely MSK - dc tele
[2019-06-23] MEDS: POTASSIUM CHLORIDE 10 MEQ in DEXTROSE 5%-NORMAL SALINE 1,000 ML IVPB SCH ×2 (11:19→21:18)
[2019-06-23] MEDS ORDERED: POLYETHYLENE GLYCOL 3350 119 GM BTL PO PRN (16:31)
[2019-06-23] MEDS: CHLORHEXIDINE GLUCONATE 4% CLEANSER FOR DECOLONIZATION TP SCH (21:18)
[2019-06-24] MEDS ORDERED: ONDANSETRON 4 MG/2 ML VIAL IVPUSH PRN (03:22)
[2019-06-24] MEDS ORDERED: PT OWN MED DRAWER 7, Y5N ONE ×2 (05:59→09:02)
[2019-06-24] MEDS: POTASSIUM CHLORIDE 10 MEQ in DEXTROSE 5%-NORMAL SALINE 1,000 ML IVPB SCH (06:18)
[2019-06-24] MEDS: HEPARIN NA (PORCINE) 5,000 UNITS/ML 1ML VIAL SQ SCH ×3 (06:18→21:59)
[2019-06-24 06:24] LABS: BASO % 0.3 % (0-2.0); EOS % 0.4 % (0-4.5); HEMATOCRIT 40.6 % (35.4-49); HEMOGLOBIN 13.8 GM/dL (11.7-16.9); LYMPH % 54.5 % (8-40); MCH 31.6 pg (25.7-33.7); MEAN CELL VOLUME 92.8 fl (80-96); MEAN PLT VOLUME 9.2 fl (7.5-11.1); MONO % 14.2 % (3.8-10.2); NEUT % 30.6 % (42.8-82.8); PLATELET COUNT 230 K/MM3 (134-434); RBC 4.38 M/mm3 (4.00-5.60); RDW 12.7 % (11.9-15.9); WHITE BLOOD COUNT 5.7 K/mm3 (4.0-10.0)
[2019-06-24 06:50] LABS: ALBUMIN 3.4 g/dl (3.4-5.0); BILIRUBIN,TOTAL 0.7 mg/dL (0.2-1); CALCIUM 8.5 mg/dL (8.5-10.1); CREATININE 0.9 mg/dL (0.55-1.3); MAGNESIUM 2.1 mg/dL (1.8-2.4); PHOSPHOROUS 3.2 mg/dL (2.5-4.9); POTASSIUM 3.7 mmol/L (3.5-5.1); TOT PROT 6.5 g/dl (6.4-8.2)
[2019-06-24] MEDS: MUPIROCIN 2% TOPICAL OINTMENT FOR DECOLONIZATION NS SCH ×2 (09:09→21:59)
[2019-06-24] MEDS: PANTOPRAZOLE SODIUM 40 MG VIAL IVPUSH SCH (09:09)
--- NOTE | 2019-06-24 09:50 | PN ---
Teaching Attending Note Name of Resident: Elia Vila ATTENDING PHYSICIAN STATEMENT I saw and evaluated the patient. I reviewed the resident's note and discussed the case with the resident. I agree with the resident's findings and plan as documented. SUBJECTIVE: No fever or chills. No PARADA , no Abd pain, No N/V. No SOB or palpitations. No diarreha. feels much better and stronger today OBJECTIVE: NAD , awake, cooperative. MMM CV: RRR, no MRG Lungs: CTAB , no crackles. Ext: No edema or erythema. no rash. Abd: soft, ND, nl BS, No tenderness today. A/P 29 y/o man with h/o marijuana use and cholecystectomy. He presented with fever, N/V , abd pain, and fatigue and developed syncopal episodes in ER . he was found to have Flu B and bradycardia . 1- Influenza B: - tamiflu for total of 5 days . last dose tomorrow morning 2- N/V/Abd pain: resolved. likely due to the flu. Possible Amelia Gordon tear, with occasional streaks of red blood. . - change PPI to po - start full liquid diet fro breakfast and if tolerated advance to regular fro lunch - KUB with no ileus or acute pathology - cont zofran and compazine 3- Sinus mali; Marijuana can cause symptomatic sinus bradycardia and even high degree block . could be due to the Flu. - lyme serology negative - avoid marijuana . he was counseled -HR on tele improved to 70s 4- Syncope: could be due the bradycardia VS vasvagal VS orthostatic hypotension - did not recur - tele - might need cardiac monitoring as out pt 5- Low TSH, Nl T3,4. this could be due to sick euthyroid syndrome or subclinical hyperthyroidism. - repeat TFTs as out pt 5- Cont: cont heparin SQ if diet is tolerated, and if he cont to do well will plan for dc this afternoon
[2019-06-24] MEDS: PANTOPRAZOLE 40 MG TABLET (FP) PO SCH (10:28)
[2019-06-24] MEDS: OSELTAMIVIR PHOSPHATE 75 MG CAPSULE PO SCH ×2 (12:10→22:30)
--- NOTE | 2019-06-24 12:43 | PN ---
Progress Note (short form) - Note Progress Note: s: nausea, vomiting improved. no chest pain, palps, dizziness, dyspnea Current Medications Acetaminophen (Ofirmev Injection -) 1,000 mg IVPB Q6H PRN PRN Reason: PAIN LEVEL 6-10 Last Admin: 06/21/19 19:38 Dose: 1,000 mg Chlorhexidine Gluconate (Hibiclens For Decolonization -) 1 applic TP HS [facility] Heparin Sodium (Porcine) (Heparin -) 5,000 unit SQ TID [facility] Last Admin: 06/24/19 06:18 Dose: 5,000 unit Morphine Sulfate (Morphine Sulfate) 2 mg IVPUSH Q6H PRN PRN Reason: PAIN LEVEL 4 - 6 Last Admin: 06/23/19 07:14 Dose: 2 mg Mupirocin (Bactroban Ointment (For Decolonization) -) 1 applic NS BID [facility] Stop: 06/25/19 21:59 Last Admin: 06/24/19 09:09 Dose: 1 applic Ondansetron HCl (Zofran Injection) 4 mg IVPUSH Q4H PRN PRN Reason: NAUSEA Oseltamivir Phosphate (Tamiflu -) 75 mg PO BID [facility] Stop: 06/25/19 21:59 Last Admin: 06/24/19 12:10 Dose: 75 mg Pantoprazole Sodium (Protonix -) 40 mg PO DAILY [facility] Last Admin: 06/24/19 10:28 Dose: 40 mg Polyethylene Glycol (Miralax (For Daily Use) -) 17 gm PO DAILY PRN PRN Reason: CONSTIPATION Last Admin: 06/23/19 18:21 Dose: 17 gm Prochlorperazine Maleate (Compazine -) 5 mg PO Q4H PRN PRN Reason: NAUSEA AND/OR VOMITING Last Admin: 06/23/19 21:15 Dose: 5 mg Simethicone (Mylicon -) 40 mg PO QID PRN PRN Reason: GAS Last Admin: 06/23/19 21:17 Dose: 40 mg Vital Signs Period Temp Pulse Resp BP Sys/[place] Pulse Ox Last 24 Hr 98.2 F-98.6 F 53-84 13-24 112-143/57-79 100-100 Constitutional: Yes: Calm Eyes: Yes: Conjunctiva Clear HENT: Yes: Atraumatic, Normocephalic Respiratory: Yes: CTA Bilaterally Gastrointestinal: Yes: Soft (no rebound or guarding) Cardiovascular: Yes: Regular Rate and Rhythm JVD: No Carotid Bruit: No Heart Sounds: Yes: S1, S2 (rrr, no m/r/g) Edema: No Neurological: Yes: Alert, Oriented Psychiatric: Yes: not agitated Sinus mali 53bpm, inc RBBB Imaging - Results X-ray: Report Reviewed EKG: Image Reviewed tele: sinus Assessment/Plan IMP: Viral syndrome, Influenza B + Sinus bradycardia Reports of altered mental status- now at baseline REC: - echo nl LV/RV function - mental status at baseline - sinus bradycardia unlikely to be related to alt mental status, were more likely due to acute viral syndrome with fever/ relative dehydration. - chest pain more likely MSK - resolved - nausea and vomiting improved, likely viral - dc tele, stable for dc from cardiac perspective
[2019-06-24] MEDS ORDERED: ONDANSETRON 4 MG TABLET PO ONE (14:02)
[2019-06-24] MEDS ORDERED: ACETAMINOPHEN 1000 MG/100 ML VIAL (NON FORMULARY) IVPB ONE (14:02)
--- NOTE | 2019-06-24 15:17 | PN ---
Physical Exam: SUBJECTIVE: Patient seen and examined NAEON Endorsing appetite in the AM. Having nausea and retching in PM. Tolerated FLD for breakfast but experienced nausea-retching after eggplant lunch OBJECTIVE: Vital Signs Period Temp Pulse Resp BP Sys/[place] Pulse Ox Last 24 Hr 98.2 F-98.7 F 53-84 13-24 120-143/70-79 100-100 GENERAL: The patient is awake, alert, and fully oriented HEAD: Normal with no signs of trauma. EYES: sclera anicteric, conjunctiva clear. No ptosis. ENT: Ears normal, nares patent, oropharynx clear without exudates, moist mucous membranes. NECK: Trachea midline, full range of motion, supple. LUNGS: Breath sounds equal, clear to auscultation bilaterally, no wheezes, no crackles, no accessory muscle use. HEART: Regular rate and rhythm, S1, S2 without murmur, rub or gallop. ABDOMEN: Soft, nondistended, hypoactive bowel sounds. Diffuse abdominal tenderness. Retching after abdominal exam EXTREMITIES: 2+ pulses, warm, well-perfused, no edema. NEUROLOGICAL: Normal speech, gait not observed. Moving all extremities spontaneously PSYCH: Normal mood, normal affect. SKIN: Warm, dry, normal turgor, no rashes or lesions noted Laboratory Results - last 24 hr 06/21/19 06/24/19 06/24/19 05:40 05:40 05:40 WBC 5.7 RBC 4.38 Hgb 13.8 Hct 40.6 MCV 92.8 MCH 31.6 MCHC 34.0 RDW 12.7 Plt Count 230 MPV 9.2 Absolute Neuts (auto) 1.7 Neutrophils % 30.6 L D Lymphocytes % 54.5 H D Monocytes % 14.2 H Eosinophils % 0.4 D Basophils % 0.3 Nucleated RBC % 0 Sodium 139 Potassium 3.7 Chloride 105 Carbon Dioxide 28 Anion Gap 6 L BUN 8.0 Creatinine 0.9 Est GFR (CKD-EPI)AfAm 135.19 Est GFR (CKD-EPI)NonAf 116.64 Random Glucose 91 Calcium 8.5 Phosphorus 3.2 Magnesium 2.1 Total Bilirubin 0.7 AST 28 ALT 37 Alkaline Phosphatase 57 Total Protein 6.5 Albumin 3.4 Lyme IgM 23 kDa Band No Result Required. Lyme IgM 39 kDa Band No Result Required. Lyme IgM 41 kDa Band No Result Required. Active Medications Generic Name Dose Route Start Last Admin Trade Name Freq PRN Reason Stop Dose Admin Acetaminophen 1,000 mg 06/21/19 19:22 06/21/19 19:38 Ofirmev Injection - IVPB 1,000 mg Q6H PRN Administration PAIN LEVEL 6-10 Chlorhexidine Gluconate 1 applic 06/24/19 22:00 Hibiclens For Decolonization - TP HS GINGER Heparin Sodium (Porcine) 5,000 unit 06/24/19 06:00 06/24/19 14:38 Heparin - SQ 5,000 unit TID GINGER Administration Morphine Sulfate 2 mg 06/21/19 22:29 06/23/19 07:14 Morphine Sulfate IVPUSH 2 mg Q6H PRN Administration PAIN LEVEL 4 - 6 Mupirocin 1 applic 06/24/19 10:00 06/24/19 09:09 Bactroban Ointment (For Decolonization) - NS 06/25/19 21:59 1 applic BID GINGER Administration Ondansetron HCl 4 mg 06/24/19 03:22 06/24/19 14:38 Zofran Injection IVPUSH 4 mg Q4H PRN Administration NAUSEA Oseltamivir Phosphate 75 mg 06/24/19 10:00 06/24/19 12:10 Tamiflu - PO 06/25/19 21:59 75 mg BID GINGER Administration Pantoprazole Sodium 40 mg 06/24/19 10:00 06/24/19 10:28 Protonix - PO 40 mg DAILY GINGER Administration Polyethylene Glycol 17 gm 06/23/19 16:31 06/23/19 18:21 Miralax (For Daily Use) - PO 17 gm DAILY PRN Administration CONSTIPATION Prochlorperazine Maleate 5 mg 06/22/19 13:23 06/23/19 21:15 Compazine - PO 5 mg Q4H PRN Administration NAUSEA AND/OR VOMITING Simethicone 40 mg 06/23/19 07:04 06/23/19 21:17 Mylicon - PO 40 mg QID PRN Administration GAS ASSESSMENT/PLAN: 29M PMH of chronic MJ usage presented to [facility] for complaint of chills, nausea, vomiting, diarrhea, and generalized weakness admitted for intractable vomiting x3d. In the ED, found to have symptomatic bradycardia with episodes of lethargy and possible LOC. Cardio evaluated and believes that LOC was not related to bradycardia and more likely relative hypotension from viral syndrome with vomiting. Still having nausea and vomiting after eating regular lunch. # bradycardia --unlikely 2/2 to cardiac ischemia, possibly 2/2 acute viral syndrome > Sinus bradycardia in most recent EKG - 53 bpm, last EKG in January was 54 bpm. On monitor patient was down to 40's. - questionable ?syncopal episodes while in bradycardia in 30s-40s > echo(06/21/19): LVEF 55-60% > trop neg > TSH 0.25(low), T4 1.0 > Lyme titers --0.91(equivocal) > CXR: negative for acute pathology > Cardiology consulted(Tehlmakskasandra): -- rec dc Tele # intractable vomiting --likely 2/2 viral illness, less likely MJ-induced hyperemesis, less likely GI path > CT A/P: neg for acute path > FOBT: neg - compazine, zofran # influenza B > Influenza B positive - Tamiflu 75 mg PO BID, day 4 #chronic substance use disorder > UDS: positive for THC - counseled pt on drug abstinence # JOE -- 2/2 relative hypovolemia from vomiting and diarrhea --improving > Cr 1.3 ...0.9 - IVF # Generalized weakness --improving - continue to monitor # FEN - soft diet DVT Heparin SQ Visit type - Emergency Visit Emergency Visit: No - New Patient This patient is new to me today: No - Critical Care Critical Care patient: No ATTENDING PHYSICIAN STATEMENT I saw and evaluated the patient. I reviewed the resident's note and discussed the case with the resident. I agree with the resident's findings and plan as documented. SUBJECTIVE: OBJECTIVE: ASSESSMENT AND PLAN:
[2019-06-24] MEDS ORDERED: morphine SULFATE 4 MG/ML VIAL IVPUSH ONE (16:27)
[2019-06-24] MEDS: LACTATED RINGERS SOLUTION 1,000 ML/1,000 ML INFUS.BAG IV SCH (17:58)
[2019-06-24] MEDS: MORPHINE SULFATE 2 MG/ML VIAL IVPUSH PRN (22:00)
[2019-06-24] MEDS ORDERED: CHLORHEXIDINE GLUCONATE 4% CLEANSER FOR DECOLONIZATION TP SCH (22:00)
[2019-06-25] MEDS: HEPARIN NA (PORCINE) 5,000 UNITS/ML 1ML VIAL SQ SCH ×2 (06:10→13:57)
[2019-06-25 09:23] LABS: HEMATOCRIT 41.9 % (35.4-49); HEMOGLOBIN 14.1 GM/dL (11.7-16.9); MCH 31.6 pg (25.7-33.7); MCHC 33.6 g/dl (32.0-35.9); MEAN PLT VOLUME 8.8 fl (7.5-11.1); PLATELET COUNT 242 K/MM3 (134-434); RBC 4.46 M/mm3 (4.00-5.60); RDW 12.7 % (11.9-15.9); WHITE BLOOD COUNT 6.1 K/mm3 (4.0-10.0)
[2019-06-25] MEDS: MUPIROCIN 2% TOPICAL OINTMENT FOR DECOLONIZATION NS SCH (09:38)
[2019-06-25 09:39] LABS: ALBUMIN 3.6 g/dl (3.4-5.0); BILIRUBIN,TOTAL 0.8 mg/dL (0.2-1); BLOOD UREA NITROGEN 10.3 mg/dL (7-18); CALCIUM 8.8 mg/dL (8.5-10.1); CREATININE 0.9 mg/dL (0.55-1.3); MAGNESIUM 2.2 mg/dL (1.8-2.4); POTASSIUM 3.9 mmol/L (3.5-5.1); TOT PROT 7.1 g/dl (6.4-8.2)
[2019-06-25] MEDS: PANTOPRAZOLE 40 MG TABLET (FP) PO SCH (09:39)
[2019-06-25] MEDS: OSELTAMIVIR PHOSPHATE 75 MG CAPSULE PO SCH (09:39)
[2019-06-25] MEDS: LACTATED RINGERS SOLUTION 1,000 ML/1,000 ML INFUS.BAG IV SCH (11:00)
--- NOTE | 2019-06-25 12:07 | PN ---
Progress Note (short form) - Note Progress Note: s: no chest pain, palps, dizziness, dyspnea Current Medications Generic Name Dose Route Start Last Admin Trade Name Freq PRN Reason Stop Dose Admin Acetaminophen 1,000 mg 06/21/19 19:22 06/21/19 19:38 Ofirmev Injection - IVPB 1,000 mg Q6H PRN Administration PAIN LEVEL 6-10 Chlorhexidine Gluconate 1 applic 06/24/19 22:00 06/24/19 21:59 Hibiclens For Decolonization - TP 1 applic HS GINGER Administration Heparin Sodium (Porcine) 5,000 unit 06/24/19 06:00 06/25/19 06:10 Heparin - SQ 5,000 unit TID GINGER Administration Lactated Ringer's 1,000 ml in 1,000 mls @ 125 mls/hr 06/24/19 17:30 06/24/19 17:58 Lactated Ringers Solution IV 125 mls/hr ASDIR GINGER Administration Mupirocin 1 applic 06/24/19 10:00 06/25/19 09:38 Bactroban Ointment (For Decolonization) - NS 06/25/19 21:59 1 applic BID GINGER Administration Ondansetron HCl 4 mg 06/24/19 03:22 06/24/19 14:38 Zofran Injection IVPUSH 4 mg Q4H PRN Administration NAUSEA Oseltamivir Phosphate 75 mg 06/24/19 10:00 06/25/19 09:39 Tamiflu - PO 06/25/19 21:59 75 mg BID GINGER Administration Pantoprazole Sodium 40 mg 06/24/19 10:00 06/25/19 09:39 Protonix - PO 40 mg DAILY GINGER Administration Polyethylene Glycol 17 gm 06/23/19 16:31 06/23/19 18:21 Miralax (For Daily Use) - PO 17 gm DAILY PRN Administration CONSTIPATION Prochlorperazine Maleate 5 mg 06/22/19 13:23 06/23/19 21:15 Compazine - PO 5 mg Q4H PRN Administration NAUSEA AND/OR VOMITING Simethicone 40 mg 06/23/19 07:04 06/23/19 21:17 Mylicon - PO 40 mg QID PRN Administration GAS Vital Signs Period Temp Pulse Resp BP Sys/[place] Pulse Ox Last 24 Hr 98.3 F-98.7 F 54-73 16-18 114-152/60-84 100-100 Constitutional: Yes: Calm Eyes: Yes: Conjunctiva Clear HENT: Yes: Atraumatic, Normocephalic Respiratory: Yes: CTA Bilaterally Gastrointestinal: Yes: Soft (no rebound or guarding) Cardiovascular: Yes: Regular Rate and Rhythm JVD: No Carotid Bruit: No Heart Sounds: Yes: S1, S2 (rrr, no m/r/g) Edema: No Neurological: Yes: Alert, Oriented Psychiatric: Yes: not agitated CBC, BMP 06/25/19 08:40 06/25/19 08:40 Imaging - Results X-ray: Report Reviewed EKG: Image Reviewed tele: sinus Assessment/Plan IMP: Viral syndrome, Influenza B + Sinus bradycardia Reports of altered mental status- now at baseline REC: - echo nl LV/RV function - mental status at baseline - sinus bradycardia unlikely to be related to alt mental status, were more likely due to acute viral syndrome with fever/ relative dehydration. - chest pain more likely MSK - resolved - nausea and vomiting improved, likely viral - dc tele, stable for dc from cardiac perspective
[2019-06-25 14:17] VITALS: BP 154/87; PULSE 104; TEMP 99.7
--- NOTE | 2019-06-25 15:52 | PN ---
Teaching Attending Note Name of Resident: Elia Vila ATTENDING PHYSICIAN STATEMENT I saw and evaluated the patient. I reviewed the resident's note and discussed the case with the resident. I agree with the resident's findings and plan as documented. SUBJECTIVE: no pain, tolerated breakfast. tolerated soft food for lunch . OBJECTIVE: NAD , awake, cooperative. MMM CV: RRR, no MRG Lungs: CTAB , no crackles. Ext: No edema or erythema. no rash. Abd: soft, ND, nl BS, No tenderness . A/P 29 y/o man with h/o marijuana use and cholecystectomy. He presented with fever, N/V , abd pain, and fatigue and developed syncopal episodes in ER . he was found to have Flu B and bradycardia . 1- Influenza B: - fonished a course of Tamiflu 2- N/V/Abd pain: resolved. tolerated diet. he was advised to advance diet as tolerated adn avoid large meals 3- Sinus mali; Marijuana can cause symptomatic sinus bradycardia and even high degree block . could be due to the Flu. - lyme serology negative - avoid marijuana . he was counseled 4- Syncope: could be due the bradycardia VS vasvagal VS orthostatic hypotension - might need cardiac monitoring as out pt 5- Low TSH, Nl T3,4. this could be due to sick euthyroid syndrome or subclinical hyperthyroidism. - repeat TFTs as out pt Dc home
--- NOTE | 2019-06-25 17:31 | DS ---
Physical Exam: SUBJECTIVE: Patient seen and examined OBJECTIVE: Vital Signs Period Temp Pulse Resp BP Sys/[place] Pulse Ox Last 24 Hr 96.8 F-99.7 F 60-104 16-22 114-154/60-87 100-100 PHYSICAL EXAM GENERAL: The patient is awake, alert, and fully oriented HEAD: Normal with no signs of trauma. EYES: sclera anicteric, conjunctiva clear. No ptosis. ENT: Ears normal, nares patent, oropharynx clear without exudates, moist mucous membranes. NECK: Trachea midline, full range of motion, supple. LUNGS: Breath sounds equal, clear to auscultation bilaterally, no wheezes, no crackles, no accessory muscle use. HEART: Regular rate and rhythm, S1, S2 without murmur, rub or gallop. ABDOMEN: Soft, nondistended, normoactive bowel sounds. NonTTP x4 quadrants EXTREMITIES: 2+ pulses, warm, well-perfused, no edema. NEUROLOGICAL: Normal speech, gait not observed. Moving all extremities spontaneously PSYCH: Normal mood, normal affect. SKIN: Warm, dry, normal turgor, no rashes or lesions noted LABS Laboratory Results - last 24 hr 06/25/19 06/25/19 08:40 08:40 WBC 6.1 RBC 4.46 Hgb 14.1 Hct 41.9 MCV 94.0 MCH 31.6 MCHC 33.6 RDW 12.7 Plt Count 242 MPV 8.8 Sodium 138 Potassium 3.9 Chloride 102 Carbon Dioxide 30 Anion Gap 7 L BUN 10.3 Creatinine 0.9 Est GFR (CKD-EPI)AfAm 135.19 Est GFR (CKD-EPI)NonAf 116.64 Random Glucose 83 Calcium 8.8 Phosphorus 3.0 Magnesium 2.2 Total Bilirubin 0.8 AST 38 H ALT 51 Alkaline Phosphatase 58 Total Protein 7.1 Albumin 3.6 HOSPITAL COURSE: Date of Admission:06/20/19 Date of Discharge: 06/25/19 29M PMH of chronic MJ usage presented to [facility] for complaint of chills, nausea, vomiting, diarrhea, and generalized weakness admitted for intractable vomiting x3d. In the ED, found to have symptomatic bradycardia with episodes of lethargy and possible LOC. Had normal echo(06/21/19) LVEF 55-60%, trop neg. Lyme titers neg. Cardio evaluated and believes that LOC was not related to bradycardia and more likely relative hypotension from viral syndrome with vomiting. TSH 0.25(low ), T4 1.0; to be rpt as outpt. Received Tamiflu x5 days, completing course. KUB done for abd pain was unremarkable. Patient able to tolerate soft diet. Stable for dc home Minutes to complete discharge: 37 Discharge Summary Problems reviewed: Yes Reason For Visit: BRADYCARDIA,VOMITING Condition: Improved - Instructions Diet, Activity, Other Instructions: You were evaluated in the hospital for severe nausea, vomiting, diarrhea and weakness. In the hospital you had episodes of slow heart rate and loss of consciousness. You were placed in the ICU for close monitoring. There no notable findings found on cardiac monitoring. Labs were notable for a flu infection. You were started on an antiviral medication. CT imaging did not show any major abnormalities. You completed a 5-day course of Tamiflu while in the hospital Medications: - NEW Medications: -- acetaminophen 650mg, up to every 6 ours for headache, abdominal pain Additional instructions: - avoid usage of illicit substances(eg. marijuana) - diet: regular or soft diet as tolerated. Can integrate more solid food in your diet as tolerated. Stay hydrated with up to 8 glasses of water daily Please follow up with the physicians below, within 1 week: - Dr Elia Vila--> Primary Care Physician located at [facility]: to discuss your repeat hospitalization, repeat blood work (thyroid labs, basic metabolic panel, creatinine). You need your thyroid function tests ( hormones ) repeated in 2-3 weeks after discharge. please, make sure that your doctor perform those tests --[facility]: [address] [place] [id number], Dr Elia Vila - Rehabilitation Therapy Aide(Dr Christine): to continue discussing your bradycardia(low heart rate), you might need a athletic monitor placed Please seek immediate medical evaluation if you experience: - episodes of loss of consciousness - chest pain, palpitations, chest pain, trouble breathing - unresolving nausea, vomiting, diarrhea Referrals: [facility] [place] [Provider Group] - 1 Week Elia Vial RES [Resident] - 1 Week (Schedule for a Monday) Javon Christine MD [Staff Physician] - 2 Weeks Disposition: HOME - Home Medications Comprehensive Discharge Medication List: Ambulatory Orders Acetaminophen [Tylenol .Regular Strength -] 650 mg PO ONCE PRN #28 tablet This patient is new to me today: No Emergency Visit: No Critical Care patient: No - Discharge Referral Referred to [facility] No ATTENDING PHYSICIAN STATEMENT I saw and evaluated the patient. I reviewed the resident's note and discussed the case with the resident. I agree with the resident's findings and plan as documented. SUBJECTIVE: OBJECTIVE: ASSESSMENT AND PLAN:
== END 2019-06-25 16:00 | disposition home or self-care (01) | DRG 194 ==
LOC: JER 13:45 → JERFT 13:45 → JERBED 18:00 → JICU 21:37 → J2W 06-21 22:33
PROVIDERS: ADMIT Internal Medicine; ATTEND Internal Medicine
DX: J10.1 Influenza due to other identified influenza virus with other respiratory manifestations (principal); N17.9 Acute kidney failure, unspecified; R00.1 Bradycardia, unspecified; R11.2 Nausea with vomiting, unspecified; D72.829 Elevated white blood cell count, unspecified; E86.0 Dehydration; R41.82 Altered mental status, unspecified; B34.9 Viral infection, unspecified; I45.10 Unspecified right bundle-branch block; F19.10 Other psychoactive substance abuse, uncomplicated; R19.7 Diarrhea, unspecified; E86.1 Hypovolemia
CPT/HCPCS: 36415; 71045-TC-FY; 71046-TC-FY; 74018-TC-FY; 74177-TC; 80048; 80053; 80307; 82150; 82272; 82550; 82553; 82962; 83605; 83631; 83690; 83735; 84100; 84439; 84443; 84481; 84484; 85025; 85027; 86618; 87045; 87046; 87186; 87324; 87449; 87804; 93005; 93010; 93306-TC; 99285-25; J0131; J1644; J7030; Q9967